=== PATIENT | female | born 1970 | race African-American/Black ===

== ENCOUNTER 2018-01-17 00:51 | Inpatient (IN) | payer MEDICARE, MEDICAID ==
[~2018-01-17] VITALS: Ht 157.5 cm; Wt 140.6 kg
[2018-01-17] VITALS (11 sets, daily range): BP systolic 126–173; BP diastolic 67–104
[2018-01-17] MEDS ORDERED: ATENOLOL25 MG ORAL (01:29)
[2018-01-17] MEDS ORDERED: CATAPRES0.3 MG ORAL (01:29)
[2018-01-17 04:22] LABS: BASOPHILS % (AUTO) 1.3 % (0.0-2.0); HEMATOCRIT 25.6 % (37.0-47.0); LYMPHOCYTES % (AUTO) 17.2 % (20.0-45.0); MEAN CORPUSCULAR VOLUME 93 FL (80-99); MONOCYTES % (AUTO) 5.2 % (1.0-10.0); NEUTROPHILS % (AUTO) 75.3 % (45.0-75.0); PLATELET COUNT 224 K/UL (150-450); RED BLOOD COUNT 2.74 M/UL (4.20-5.40); RED CELL DISTRIBUTION WIDTH 14.6 % (11.6-14.8); WHITE BLOOD COUNT 9.5 K/UL (4.8-10.8)
--- NOTE | 2018-01-17 04:31 | Emergency Room Report ---
History of Present Illness General Chief Complaint: General Complaint Source: Patient Present Illness HPI Patient is a 47-year-old female who presented after increased generalized weakness. She gradual onset of symptoms. Patient was noted to have prior history of end-stage renal disease as well as hypertension and diabetes. She is on dialysis. The patient had recently had a graft infection. She had surgery to replace dialysis catheter at [facility]. The patient was noted to have the inability to obtain dialysis for her last 2 dialysis. The patient stated that she went to her appointment at the dialysis clinic and was unable to be completely dialyzed due to malfunction of access. Patient denies any fever. She had not been vomiting. She denied shortness of breath. Allergies: Coded Allergies: HEPARIN (Verified Allergy, Unknown, 01/17/18) negative reaction with eyes Patient History Past Medical History: HTN, renal disease, dialysis Past Surgical History: other - dialysis access Reviewed Nursing Documentation: PMH: Agreed; PSxH: Agreed Nursing Documentation-PMH Hx Hypertension: Yes Hx Dialysis: Yes - ESRD,M-W-F Review of Systems All Other Systems: negative except mentioned in HPI Physical Exam Vital Signs Date Time Temp Pulse Resp B/P (MAP) Pulse Ox O2 Delivery O2 Flow Rate FiO2 01/17/18 01:20 97.7 63 16 173/104 100 Room Air 97.7 Sp02 EP Interpretation: reviewed, normal General Appearance: normal inspection, well appearing, no apparent distress, alert, obese, Chronically Ill Head: atraumatic ENT: normal ENT inspection, hearing grossly normal, normal voice Neck: normal inspection, full range of motion, supple, no bony tend Respiratory: normal inspection, lungs clear, normal breath sounds, no respiratory distress, no retraction, no wheezing Cardiovascular #1: edema Gastrointestinal: normal inspection, normal bowel sounds, non tender, soft, no guarding, no hernia Genitourinary: no CVA tenderness Musculoskeletal: normal inspection, back normal, normal range of motion Neurologic: normal inspection, alert, oriented x3, responsive, county program technician III-XII nml as tested, speech normal Psychiatric: normal inspection, judgement/insight normal, mood/affect normal Skin: normal inspection, normal color, no rash Medical Decision Making Diagnostic Impression: Primary Impression: Missed dialysis Additional Impressions: Clotted dialysis access ESRD (end stage renal disease) ER Course Patient presented for generalized weakness. Differential diagnosis included was not limited to anemia, urinary tract infection, electrolyte abnormality, hypothyroidism, myocardial infarction, myasthenia gravis, dehydration, among others. Because of complexity of patient's case laboratory testing and imaging studies were ordered. Laboratory studies showed marked elevation of BUN/creatinine consistent with a missed dialysis. She was noted to have a normal potassium. The patient will be admitted for further evaluation and treatment and likely dialysis. Patient was discussed with Dr. David Faulkner for inpatient management Labs Test 01/17/18 04:10 White Blood Count 9.5 K/UL (4.8-10.8) Red Blood Count 2.74 M/UL (4.20-5.40) Hemoglobin 8.0 G/DL (12.0-16.0) Hematocrit 25.6 % (37.0-47.0) Mean Corpuscular Volume 93 FL (80-99) Mean Corpuscular Hemoglobin 29.0 PG (27.0-31.0) Mean Corpuscular Hemoglobin Concent 31.1 G/DL (32.0-36.0) Red Cell Distribution Width 14.6 % (11.6-14.8) Platelet Count 224 K/UL (150-450) Mean Platelet Volume 6.6 FL (6.5-10.1) Neutrophils (%) (Auto) 75.3 % (45.0-75.0) Lymphocytes (%) (Auto) 17.2 % (20.0-45.0) Monocytes (%) (Auto) 5.2 % (1.0-10.0) Eosinophils (%) (Auto) 1.0 % (0.0-3.0) Basophils (%) (Auto) 1.3 % (0.0-2.0) Prothrombin Time 10.5 SEC (9.30-11.50) Prothromb Time International Ratio 1.0 (0.9-1.1) Activated Partial Thromboplast Time 21 SEC (23-33) Sodium Level 140 MMOL/L (136-145) Potassium Level 3.9 MMOL/L (3.5-5.1) Chloride Level 103 MMOL/L (98-107) Carbon Dioxide Level 20 MMOL/L (21-32) Anion Gap 17 mmol/L (5-15) Blood Urea Nitrogen 96 mg/dL (7-18) Creatinine 15.3 MG/DL (0.55-1.30) Estimat Glomerular Filtration Rate 3.0 mL/min (>60) Glucose Level 122 MG/DL (74-106) Calcium Level 8.8 MG/DL (8.5-10.1) Total Bilirubin 0.5 MG/DL (0.2-1.0) Aspartate Amino Transf (AST/SGOT) 17 U/L (15-37) Alanine Aminotransferase (ALT/SGPT) 16 U/L (12-78) Alkaline Phosphatase 51 U/L (46-116) Total Protein 7.9 G/DL (6.4-8.2) Albumin 3.5 G/DL (3.4-5.0) Globulin 4.4 g/dL Albumin/Globulin Ratio 0.8 (1.0-2.7) EKG Diagnostic Results Rate: normal Rhythm: NSR ST Segments: no acute changes Last Vital Signs Date Time Temp Pulse Resp B/P (MAP) Pulse Ox O2 Delivery O2 Flow Rate FiO2 01/17/18 01:30 97.7 16 173/104 100 Room Air 97.7 01/17/18 01:20 63 Status: unchanged Disposition: ADMITTED INPATIENT Condition: Serious Patient Instructions: Nontoxic Ingestion Rustam Moody MD Jan 17, 2018 04:31
[2018-01-17 04:35] LABS: ANION GAP 17 mmol/L (5-15); BLOOD UREA NITROGEN 96 mg/dL (7-18); CALCIUM 8.8 MG/DL (8.5-10.1); CARBON DIOXIDE 20 MMOL/L (21-32); CHLORIDE 103 MMOL/L (98-107); CREATININE 15.3 MG/DL (0.55-1.30); POTASSIUM 3.9 MMOL/L (3.5-5.1); SODIUM 140 MMOL/L (136-145)
[2018-01-17 04:40] LABS: ALANINE AMINOTRANSFERASE 16 U/L (12-78); ALBUMIN 3.5 G/DL (3.4-5.0); ALBUMIN/GLOBULIN RATIO 0.8 (1.0-2.7); ALKALINE PHOSPHATASE 51 U/L (46-116); ASPARTATE AMINO TRANSFERASE 17 U/L (15-37); BILIRUBIN,TOTAL 0.5 MG/DL (0.2-1.0)
[2018-01-17] MEDS ORDERED: Albuterol/Ipratropium 3ml neb HHN PRN (05:00)
[2018-01-17] MEDS ORDERED: Miralax 17gm pkt ORAL PRN (05:00)
--- NOTE | 2018-01-17 10:41 | Cardiac Electrophysiology PN ---
Subjective Subjective [id number] Objective Last 24 Hour Vital Signs Date Time Temp Pulse Resp B/P (MAP) Pulse Ox O2 Delivery O2 Flow Rate FiO2 01/17/18 08:00 97.7 67 18 148/87 (107) 100 97.7 01/17/18 06:30 97.6 71 17 171/101 100 Room Air 97.6 01/17/18 05:30 97.6 71 17 171/101 100 Room Air 97.6 01/17/18 01:30 97.7 16 173/104 100 Room Air 97.7 01/17/18 01:20 97.7 63 16 173/104 100 Room Air 97.7 Intake and Output 01/16/18 01/17/18 19:00 07:00 Intake Total 0 ml Balance 0 ml Intake Oral 0 ml Laboratory Tests Test 01/17/18 03:55 01/17/18 04:10 Lactic Acid Level 0.90 mmol/L (0.4-2.0) Troponin I 0.000 ng/mL (0.000-0.056) White Blood Count 9.5 K/UL (4.8-10.8) Red Blood Count 2.74 M/UL (4.20-5.40) L Hemoglobin 8.0 G/DL (12.0-16.0) L Hematocrit 25.6 % (37.0-47.0) L Mean Corpuscular Volume 93 FL (80-99) Mean Corpuscular Hemoglobin 29.0 PG (27.0-31.0) Mean Corpuscular Hemoglobin Concent 31.1 G/DL (32.0-36.0) L Red Cell Distribution Width 14.6 % (11.6-14.8) Platelet Count 224 K/UL (150-450) Mean Platelet Volume 6.6 FL (6.5-10.1) Neutrophils (%) (Auto) 75.3 % (45.0-75.0) H Lymphocytes (%) (Auto) 17.2 % (20.0-45.0) L Monocytes (%) (Auto) 5.2 % (1.0-10.0) Eosinophils (%) (Auto) 1.0 % (0.0-3.0) Basophils (%) (Auto) 1.3 % (0.0-2.0) Prothrombin Time 10.5 SEC (9.30-11.50) Prothromb Time International Ratio 1.0 (0.9-1.1) Activated Partial Thromboplast Time 21 SEC (23-33) L Sodium Level 140 MMOL/L (136-145) Potassium Level 3.9 MMOL/L (3.5-5.1) Chloride Level 103 MMOL/L (98-107) Carbon Dioxide Level 20 MMOL/L (21-32) L Anion Gap 17 mmol/L (5-15) H Blood Urea Nitrogen 96 mg/dL (7-18) H Creatinine 15.3 MG/DL (0.55-1.30) H Estimat Glomerular Filtration Rate 3.0 mL/min (>60) Glucose Level 122 MG/DL (74-106) H Calcium Level 8.8 MG/DL (8.5-10.1) Total Bilirubin 0.5 MG/DL (0.2-1.0) Aspartate Amino Transf (AST/SGOT) 17 U/L (15-37) Alanine Aminotransferase (ALT/SGPT) 16 U/L (12-78) Alkaline Phosphatase 51 U/L (46-116) Total Protein 7.9 G/DL (6.4-8.2) Albumin 3.5 G/DL (3.4-5.0) Globulin 4.4 g/dL Albumin/Globulin Ratio 0.8 (1.0-2.7) Farnk Liang MD Jan 17, 2018 10:41
[2018-01-17] MEDS: Atenolol 25mg tab ORAL SCH ×2 (10:52→11:00)
[2018-01-17] MEDS: Heparin 5000 units/ml inj SUBQ SCH ×3 (10:52→21:48)
--- NOTE | 2018-01-17 12:09 | Diagnostic Imaging Report ---
Indication: Malpositioned tunneled dialysis catheter Technique: One view of the chest Comparison: none Findings: Patient is rotated to the right. There is a left transjugular tunneled dialysis catheter, tip of which projects at the level of the innominate venous confluence. The heart is borderline enlarged. The lungs and pleural spaces are clear. Impression: Malpositioned, likely dislodged, tunneled dialysis catheter. Consider over the guidewire replacement No acute process
--- NOTE | 2018-01-17 12:14 | Consultation ---
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
--- NOTE | 2018-01-17 12:22 | Consultation ---
History of Present Illness General Date patient seen: Jan 17, 2018 Chief Complaint: General Complaint Present Illness HPI 47 year old female with hx of ESRF on HD, HTN, CAD, presented to [facility] because apparently she missed her dialysis a few times. Her BP was high on presentation. she is admitted to telemetry for further evaluation. Allergies: Coded Allergies: No Known Allergies (Unverified , 01/17/18) Medication History Scheduled Atenolol* (Tenormin*), 25 MG ORAL DAILY, (Reported) Clonidine Hcl* (Catapres*), 0.3 MG ORAL Q8HR, (Reported) Patient History Healthcare decision maker Resuscitation status Advanced Directive on File Past Medical/Surgical History Past Medical/Surgical History: (1) Hypertension (2) ESRD (end stage renal disease) Review of Systems Constitutional: Reports: no symptoms Eye: Reports: no symptoms ENT: Reports: no symptoms Respiratory: Reports: no symptoms Cardiovascular: Reports: no symptoms Physical Exam General Appearance: WD/WN, no apparent distress Lines, tubes and drains: peripheral HEENT: normocephalic, atraumatic Neck: non-tender, normal alignment Respiratory/Chest: chest wall non-tender, lungs clear Breasts: no masses Cardiovascular/Chest: normal peripheral pulses Abdomen: normal bowel sounds Genitourinary/Rectal: normal rectal exam Extremities: normal range of motion Last 24 Hour Vital Signs Date Time Temp Pulse Resp B/P (MAP) Pulse Ox O2 Delivery O2 Flow Rate FiO2 01/17/18 11:06 71 138/78 01/17/18 11:00 71 138/78 01/17/18 08:00 97.7 67 18 148/87 (107) 100 97.7 01/17/18 06:30 97.6 71 17 171/101 100 Room Air 97.6 01/17/18 05:30 97.6 71 17 171/101 100 Room Air 97.6 01/17/18 01:30 97.7 16 173/104 100 Room Air 97.7 01/17/18 01:20 97.7 63 16 173/104 100 Room Air 97.7 Intake and Output 01/16/18 01/17/18 19:00 07:00 Intake Total 0 ml Balance 0 ml Intake Oral 0 ml Laboratory Tests Test 01/17/18 03:55 01/17/18 04:10 Lactic Acid Level 0.90 mmol/L (0.4-2.0) Troponin I 0.000 ng/mL (0.000-0.056) White Blood Count 9.5 K/UL (4.8-10.8) Red Blood Count 2.74 M/UL (4.20-5.40) L Hemoglobin 8.0 G/DL (12.0-16.0) L Hematocrit 25.6 % (37.0-47.0) L Mean Corpuscular Volume 93 FL (80-99) Mean Corpuscular Hemoglobin 29.0 PG (27.0-31.0) Mean Corpuscular Hemoglobin Concent 31.1 G/DL (32.0-36.0) L Red Cell Distribution Width 14.6 % (11.6-14.8) Platelet Count 224 K/UL (150-450) Mean Platelet Volume 6.6 FL (6.5-10.1) Neutrophils (%) (Auto) 75.3 % (45.0-75.0) H Lymphocytes (%) (Auto) 17.2 % (20.0-45.0) L Monocytes (%) (Auto) 5.2 % (1.0-10.0) Eosinophils (%) (Auto) 1.0 % (0.0-3.0) Basophils (%) (Auto) 1.3 % (0.0-2.0) Prothrombin Time 10.5 SEC (9.30-11.50) Prothromb Time International Ratio 1.0 (0.9-1.1) Activated Partial Thromboplast Time 21 SEC (23-33) L Sodium Level 140 MMOL/L (136-145) Potassium Level 3.9 MMOL/L (3.5-5.1) Chloride Level 103 MMOL/L (98-107) Carbon Dioxide Level 20 MMOL/L (21-32) L Anion Gap 17 mmol/L (5-15) H Blood Urea Nitrogen 96 mg/dL (7-18) H Creatinine 15.3 MG/DL (0.55-1.30) H Estimat Glomerular Filtration Rate 3.0 mL/min (>60) Glucose Level 122 MG/DL (74-106) H Calcium Level 8.8 MG/DL (8.5-10.1) Total Bilirubin 0.5 MG/DL (0.2-1.0) Aspartate Amino Transf (AST/SGOT) 17 U/L (15-37) Alanine Aminotransferase (ALT/SGPT) 16 U/L (12-78) Alkaline Phosphatase 51 U/L (46-116) Total Protein 7.9 G/DL (6.4-8.2) Albumin 3.5 G/DL (3.4-5.0) Globulin 4.4 g/dL Albumin/Globulin Ratio 0.8 (1.0-2.7) L Height (Feet): 5 Height (Inches): 2.00 Weight (Pounds): 301 Medications Current Medications Medications (Trade) Dose Ordered Sig/Everardo Route PRN Reason Start Time Stop Time Status Last Admin Dose Admin Acetaminophen (Tylenol) 650 mg Q4H PRN ORAL Fever 01/17/18 05:00 02/16/18 04:59 Albuterol/ Ipratropium (Albuterol/ Ipratropium) 3 ml Q4H PRN HHN Shortness of Breath 01/17/18 05:00 01/22/18 04:59 Amlodipine Besylate (Norvasc) 10 mg DAILY ORAL 01/18/18 09:00 02/17/18 08:59 Atenolol (Tenormin) 25 mg DAILY ORAL 01/17/18 09:00 02/16/18 08:59 Dextrose (Dextrose 50%) STAT PRN IV Hypoglycemia 01/17/18 05:00 02/16/18 04:59 Heparin Sodium (Porcine) (Heparin 5000 units/ml) 5,000 units EVERY 12 HOURS SUBQ 01/17/18 09:00 02/16/18 08:59 Ondansetron HCl (Zofran) 4 mg Q6H PRN IVP Nausea & Vomiting 01/17/18 05:00 02/16/18 04:59 Polyethylene Glycol (Miralax) 17 gm DAILYPRN PRN ORAL Constipation 01/17/18 05:00 02/16/18 04:59 Temazepam (Restoril) 15 mg HSPRN PRN ORAL Insomnia 01/17/18 05:00 01/24/18 04:59 Assessment/Plan Problem List: (1) Pulmonary edema ICD Codes: J81.1 - Chronic pulmonary edema SNOMED: 10465226 (2) Missed dialysis SNOMED: 419364480 (3) ESRD (end stage renal disease) ICD Codes: N18.6 - End stage renal disease SNOMED: 05058067 (4) Clotted dialysis access ICD Codes: T82.49XA - Other complication of vascular dialysis catheter, initial encounter SNOMED: 75881754 (5) Hypertension ICD Codes: I10 - Essential (primary) hypertension SNOMED: 82195837 Assessment/Plan nephrology evaluation respiratory treatment titrate fio2 HD yamila dvt prophylaxis Porter Mckeon MD Jan 17, 2018 12:22
[2018-01-17] MEDS ORDERED: HydrALAZINE 25mg tab ORAL PRN (12:30)
[2018-01-17] MEDS: Docusate 100mg cap ORAL SCH ×2 (13:00→17:19)
[2018-01-17] MEDS ORDERED: Lidocaine 1% Plain 30 ml INJ SCH (13:15)
--- NOTE | 2018-01-17 15:49 | Pre-Procedure Note/Attestation ---
Pre-Procedure Note/Attestation Complete Prior to Procedure Planned Procedure: left Procedure Narrative: Permacath exchange Indications for Procedure Pre-Operative Diagnosis: Malpositioned permacath Attestation I attest that I discussed the nature of the procedure; its benefits; risks and complications; and alternatives (and the risks and benefits of such alternatives ), prior to the procedure, with the patient (or the patient's legal personal financial representative). I attest that, if there was a reasonable possibility of needing a blood transfusion, the patient (or the patient's legal personal financial representative) was given the [facility] standardized written summary, pursuant to the Josias Wicho Blood Safety Act ([place] Health and Safety Code # 1645, as amended). I attest that I re-evaluated the patient just prior to the surgery and that there has been no change in the patient's H&P, except as documented below: Carlos Eduardo Courtney MD Jan 17, 2018 15:49
--- NOTE | 2018-01-17 16:19 | Brief Operative Note ---
Immediate Post Operative Note Operative Note Pre-op Diagnosis: Malpositioned permacath Procedure: Permacath exchange Post-op Diagnosis: same as pre-op Findings: consistent w/pre-op dx studies Surgeon: Lorena COURTNEY Anesthesia: local Specimen: none Complications: none Condition: stable Fluids: none Estimated Blood Loss: none Drains: none Implant(s) used?: Yes - 28 cm BioFlo catheter Carlos Eduardo Courtney MD Jan 17, 2018 16:19
--- NOTE | 2018-01-17 20:00 | Consultation ---
DATE OF CONSULTATION: 01/17/2018 CARDIOLOGY CONSULTATION CONSULTING PHYSICIAN: Frank Saab M.D. REFERRING PHYSICIAN: David Faulkner D.O. REASON FOR CONSULTATION: Accelerated hypertension. HISTORY OF PRESENT ILLNESS: The patient is a 47-year-old lady with history of hypertension, diabetes, morbid obesity, end-stage renal disease, on hemodialysis, who was brought to the emergency room as the dialysis access was not working. The patient's blood pressure in the ER was 172/104. The patient was admitted and Cardiology consultation was obtained for further evaluation and management. REVIEW OF SYSTEMS: Negative other than what was mentioned in the history of present illness. PAST MEDICAL HISTORY: As mentioned above. FAMILY HISTORY: Noncontributory. SOCIAL HISTORY: She lives at home. Does not smoke or drink alcohol. PHYSICAL EXAMINATION: VITAL SIGNS: Blood pressure is 148/87 and was as high as 171/101 just earlier today, pulse 67, respirations 18, and temperature 97.7. HEAD AND NECK: Showed no JVD. LUNGS: Clear. CHEST: The patient has dialysis access in the chest, left subclavian. CARDIOVASCULAR: Regular. S1 and S2 with no gallop or murmur. ABDOMEN: Morbidly obese. EXTREMITIES: 1+ pitting edema. LABORATORY AND DIAGNOSTIC DATA: Labs show white count 9.5, hemoglobin 8, hematocrit 25, platelet count of 224,000. Sodium 140, potassium 3.9, BUN of 96, creatinine , and glucose of 122. Troponin is negative. ASSESSMENT AND PLAN: 1. Accelerated hypertension. The patient is on Norvasc 10 mg daily and atenolol 25 mg daily. Her EKG showed sinus bradycardia and has also first-degree AV block. I would add hydralazine 25 mg b.i.d. to her medical regimen and get an echocardiogram. 2. First-degree AV block. 3. Clotted dialysis access. 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 Thank you very much, Dr. Faulkner, for allowing me to participate in the care of this patient. Please do not hesitate to contact me for any questions regarding my evaluation. Frank Saab M.D. DR: Ambrose JOB#: [id number] CC:
--- NOTE | 2018-01-17 21:45 | History and Physical Report ---
DATE OF ADMISSION: 01/17/2018 TIME: 1 p.m. CONSULTANTS: 1. Porter Mckeon M.D. 2. Frank Saab M.D. 3. Thompson Gresham M.D. CHIEF COMPLAINT: Weakness, missed dialysis, possible history of clotted cath. BRIEF HISTORY: This is a 47-year-old female, who lives at home, presented to [facility] last night with history of increased weakness. She had missed dialysis, was found to have anemia of 8. The patient was admitted to telemetry for further care. Currently, calm in bed. No complaints. No chest pain. No shortness of breath. No nausea, vomiting, or diarrhea. The patient is eating. PAST MEDICAL HISTORY: Includes hypertension, weakness, ESRD, anemia, and morbid obesity. PAST SURGICAL HISTORY: Shunt. MEDICATIONS: Include Procrit, amlodipine, pantoprazole, docusate sodium, Renvela, hydralazine, amlodipine, atenolol, albuterol, and Zofran. ALLERGIES: Heparin. SOCIAL HISTORY: Positive smoking. No alcohol. No intravenous drug abuse. FAMILY HISTORY: Noncontributory. PHYSICAL EXAMINATION: GENERAL: Calm in bed, oriented x3, in no acute distress. VITAL SIGNS: Temperature is 97 degrees, pulse 67, respirations 18, and blood pressure 140/87. CARDIOVASCULAR: No murmur. LUNGS: Poor air exchange. ABDOMEN: Bowel sounds distant. EXTREMITIES: No cyanosis or edema. NEUROLOGIC: The patient moves all extremities. Slightly weak. LABORATORY DATA: Labs, at this time, show hemoglobin 8, otherwise, CBC is normal. BMP shows CO2 20, BUN and creatinine are 96 and 15, and glucose 122. INR is 1.0. PTT 21. ASSESSMENT: 1. Weakness. 2. Hypertension. 3. End-stage renal disease. 4. Cardiac catheterization history. 5. Anemia. 6. Morbidly obese. PLAN: 1. Dialysis p.r.n. 2. Blood pressure and pain control. 3. Dietary followup. 4. OT, PT, and dietary evaluation. 5. We will continue to follow this patient. David Faulkner D.O. DR: STAN JOB#: [id number] CC:
[2018-01-18] VITALS (9 sets, daily range): BP systolic 123–196; BP diastolic 66–93
[2018-01-18] MEDS ORDERED: Lidocaine 1% Plain 30 ml INJ SCH (08:30)
[2018-01-18] MEDS: Atenolol 25mg tab ORAL SCH (09:00)
[2018-01-18] MEDS: Docusate 100mg cap ORAL SCH ×3 (09:00→18:00)
[2018-01-18] MEDS: Heparin 5000 units/ml inj SUBQ SCH (09:00)
--- NOTE | 2018-01-18 09:44 | Nephrology Progress Note ---
Assessment/Plan Problem List: (1) ESRD (end stage renal disease) (2) Hypertension (3) Clotted dialysis access Assessment ESRD DM HTN now controlled Morbid obesity clotted left chest cath Plan Plan: Change cath by radiologist, done yesterday- didnt work again- due for change again HD after catheter functional BP and BS check discussed with RN today's labs pending Subjective ROS Limited/Unobtainable: No Constitutional: Reports: weakness Objective Objective Last 24 Hour Vital Signs Date Time Temp Pulse Resp B/P (MAP) Pulse Ox O2 Delivery O2 Flow Rate FiO2 01/18/18 09:00 66 123/66 01/18/18 09:00 66 123/66 01/18/18 08:25 Room Air 01/18/18 08:00 98.2 66 18 123/66 (85) 100 98.2 01/18/18 04:30 Room Air 01/18/18 04:19 97.5 73 16 139/83 (101) 98 97.5 01/18/18 03:48 73 01/18/18 00:00 97.7 72 17 144/70 (94) 96 97.7 75 01/17/18 23:35 76 01/17/18 23:18 Room Air 01/17/18 19:47 76 01/17/18 19:46 97.9 75 18 126/67 (86) 99 97.9 75 01/17/18 19:40 74 18 Room Air 21 01/17/18 16:00 97.7 74 18 134/71 (92) 100 97.7 01/17/18 16:00 75 01/17/18 14:30 65 18 144/75 (98) 100 01/17/18 14:25 66 18 138/80 (99) 100 01/17/18 14:20 68 18 150/83 (105) 100 01/17/18 14:15 65 16 158/89 (112) 100 01/17/18 13:27 Room Air 01/17/18 13:27 64 18 01/17/18 12:00 98.2 72 18 138/78 (98) 98 98.2 01/17/18 12:00 77 01/17/18 11:06 71 138/78 01/17/18 11:00 71 138/78 01/17/18 10:22 65 18 Room Air 21 Intake and Output 01/17/18 01/18/18 19:00 07:00 Intake Total 360 ml Balance 360 ml Intake Oral 360 ml Laboratory Tests 01/17/18 13:40: Urine HCG, Qualitative Negative Height (Feet): 5 Height (Inches): 2.00 Weight (Pounds): 301 General Appearance: no apparent distress Cardiovascular: normal rate Respiratory/Chest: decreased breath sounds Abdomen: other - obese Thompson Gresham MD Jan 18, 2018 09:44
[2018-01-18 10:06] LABS: HEMATOCRIT 24.7 % (37.0-47.0); HEMOGLOBIN 7.6 G/DL (12.0-16.0); MEAN CORPUSCULAR VOLUME 94 FL (80-99); PLATELET COUNT 232 K/UL (150-450); RED BLOOD COUNT 2.64 M/UL (4.20-5.40); RED CELL DISTRIBUTION WIDTH 14.9 % (11.6-14.8); WHITE BLOOD COUNT 9.4 K/UL (4.8-10.8)
[2018-01-18 10:40] LABS: ALANINE AMINOTRANSFERASE 25 U/L (12-78); ALBUMIN 3.5 G/DL (3.4-5.0); ALBUMIN/GLOBULIN RATIO 0.9 (1.0-2.7); ALKALINE PHOSPHATASE 51 U/L (46-116); ANION GAP 15 mmol/L (5-15); ASPARTATE AMINO TRANSFERASE 24 U/L (15-37); BILIRUBIN,TOTAL 0.5 MG/DL (0.2-1.0); BLOOD UREA NITROGEN 100 mg/dL (7-18); CALCIUM 8.5 MG/DL (8.5-10.1); CARBON DIOXIDE 22 MMOL/L (21-32); CHLORIDE 104 MMOL/L (98-107); CHOLESTEROL 132 MG/DL (< 200); CREATININE 14.9 MG/DL (0.55-1.30); FERRITIN 491 NG/ML (8-388); HDL CHOLESTEROL 42 MG/DL (40-60); LACTATE DEHYDROGENASE 233 U/L (81-234); POTASSIUM 4.2 MMOL/L (3.5-5.1); SODIUM 141 MMOL/L (136-145); TRIGLYCERIDES 171 MG/DL (30-150)
--- NOTE | 2018-01-18 11:03 | Diagnostic Imaging Report ---
Indications: Needs long-term dialysis access Technique: Patient given IV Ancef. Total sterile technique, including sterile probe cover and sterile gel, sterile gloves, hand hygiene, hat, mask,, sterile gown, large sterile drape, and preparation with 2% chlorhexidine utilized. Local anesthesia with 1% lidocaine. A hydrophilic guidewires were inserted through the pre-existing malpositioned catheter. The catheter was removed, and a new 28 cm BioFlo catheter was inserted over 2 guidewires. Digital radiograph documents satisfactory catheter tip position in the superior vena cava, no kinking at the insertion site. Both catheter ports aspirated and flushed. Catheter was fixed to the skin. Patient tolerated procedure well without immediate complication. Total fluoroscopy time 2.5 minutes. Total dose area product 240 dGycm2 Total number of images-2 Comparison: Preprocedure chest radiograph of earlier the same day Findings: Completion radiograph documents satisfactory position and course of the catheter, catheter tip at the superior vena cava. Impression: Successful replacement of malpositioned left jugular tunneled dialysis catheter, as described above
[2018-01-18 11:48] LABS: % IRON SATURATION 31 % (15-50); IRON 69 ug/dL (50-175); TOTAL IRON BINDING CAPACITY 225 ug/dL (250-450)
--- NOTE | 2018-01-18 11:55 | Cardiac Electrophysiology PN ---
Assessment/Plan Assessment/Plan 1. Accelerated hypertension. On Norvasc 10 mg daily and atenolol 25 mg daily and HD. 2. First-degree AV block. No Syncope 3. Clotted dialysis access. Needs catheter change again. FU Dr Gresham Subjective Subjective No CP or SOB. Changed dialysis cath by radiologist yesterday- didnt work again - due for change again HD after catheter functional Objective Last 24 Hour Vital Signs Date Time Temp Pulse Resp B/P (MAP) Pulse Ox O2 Delivery O2 Flow Rate FiO2 01/18/18 09:00 Room Air 01/18/18 09:00 66 123/66 01/18/18 09:00 66 123/66 01/18/18 08:25 Room Air 01/18/18 08:00 98.2 66 18 123/66 (85) 100 98.2 01/18/18 08:00 63 01/18/18 04:30 Room Air 01/18/18 04:19 97.5 73 16 139/83 (101) 98 97.5 01/18/18 03:48 73 01/18/18 00:00 97.7 72 17 144/70 (94) 96 97.7 75 01/17/18 23:35 76 01/17/18 23:18 Room Air 01/17/18 19:47 76 01/17/18 19:46 97.9 75 18 126/67 (86) 99 97.9 75 01/17/18 19:40 74 18 Room Air 21 01/17/18 16:00 97.7 74 18 134/71 (92) 100 97.7 01/17/18 16:00 75 01/17/18 14:30 65 18 144/75 (98) 100 01/17/18 14:25 66 18 138/80 (99) 100 01/17/18 14:20 68 18 150/83 (105) 100 01/17/18 14:15 65 16 158/89 (112) 100 01/17/18 13:27 Room Air 01/17/18 13:27 64 18 01/17/18 12:00 98.2 72 18 138/78 (98) 98 98.2 01/17/18 12:00 77 Intake and Output 01/17/18 01/18/18 19:00 07:00 Intake Total 360 ml Balance 360 ml Intake Oral 360 ml Laboratory Tests Test 01/17/18 13:40 01/18/18 09:50 Urine HCG, Qualitative Negative (NEGATIVE) White Blood Count 9.4 K/UL (4.8-10.8) Red Blood Count 2.64 M/UL (4.20-5.40) L Hemoglobin 7.6 G/DL (12.0-16.0) L Hematocrit 24.7 % (37.0-47.0) L Mean Corpuscular Volume 94 FL (80-99) Mean Corpuscular Hemoglobin 28.8 PG (27.0-31.0) Mean Corpuscular Hemoglobin Concent 30.8 G/DL (32.0-36.0) L Red Cell Distribution Width 14.9 % (11.6-14.8) H Platelet Count 232 K/UL (150-450) Mean Platelet Volume 6.2 FL (6.5-10.1) L Neutrophils (%) (Auto) % (45.0-75.0) Lymphocytes (%) (Auto) % (20.0-45.0) Monocytes (%) (Auto) % (1.0-10.0) Eosinophils (%) (Auto) % (0.0-3.0) Basophils (%) (Auto) % (0.0-2.0) Differential Total Cells Counted 100 Neutrophils % (Manual) 70 % (45-75) Lymphocytes % (Manual) 22 % (20-45) Monocytes % (Manual) 6 % (1-10) Eosinophils % (Manual) 1 % (0-3) Basophils % (Manual) 1 % (0-2) Band Neutrophils 0 % (0-8) Platelet Estimate Adequate Platelet Morphology Normal Hypochromasia 2+ Anisocytosis 1+ Erythrocyte Sedimentation Rate 99 MM/HR (0-20) H Reticulocyte Count 1.5 % (0.0-2.0) Prothrombin Time 10.5 SEC (9.30-11.50) Prothromb Time International Ratio 1.0 (0.9-1.1) Activated Partial Thromboplast Time 22 SEC (23-33) L Sodium Level 141 MMOL/L (136-145) Potassium Level 4.2 MMOL/L (3.5-5.1) Chloride Level 104 MMOL/L (98-107) Carbon Dioxide Level 22 MMOL/L (21-32) Anion Gap 15 mmol/L (5-15) Blood Urea Nitrogen 100 mg/dL (7-18) H Creatinine 14.9 MG/DL (0.55-1.30) H Estimat Glomerular Filtration Rate 3.2 mL/min (>60) Glucose Level 113 MG/DL (74-106) H Hemoglobin A1c Pending Uric Acid Pending Calcium Level 8.5 MG/DL (8.5-10.1) Phosphorus Level Pending Magnesium Level Pending Iron Level Pending Unsaturated Iron Binding Pending Ferritin 491 NG/ML (8-388) H Total Bilirubin 0.5 MG/DL (0.2-1.0) Gamma Glutamyl Transpeptidase Pending Aspartate Amino Transf (AST/SGOT) 24 U/L (15-37) Alanine Aminotransferase (ALT/SGPT) 25 U/L (12-78) Alkaline Phosphatase 51 U/L (46-116) Lactate Dehydrogenase 233 U/L (81-234) Troponin I 0.000 ng/mL (0.000-0.056) Pro-B-Type Natriuretic Peptide Pending Total Protein 7.6 G/DL (6.4-8.2) Albumin 3.5 G/DL (3.4-5.0) Globulin 4.1 g/dL Albumin/Globulin Ratio 0.9 (1.0-2.7) L Triglycerides Level 171 MG/DL (30-150) H Cholesterol Level 132 MG/DL (< 200) LDL Cholesterol 62 mg/dL (<100) HDL Cholesterol 42 MG/DL (40-60) Cholesterol/HDL Ratio 3.1 (3.3-4.4) L Carcinoembryonic Antigen Pending Vitamin B12 Level 796 PG/ML (193-986) Folate 5.3 NG/ML (8.6-58.9) L Thyroid Stimulating Hormone (TSH) 1.682 uiU/mL (0.358-3.740) Microbiology Date/Time Source Procedure Growth Status 01/17/18 04:10 Blood Blood Culture - Preliminary NO GROWTH AFTER 24 HOURS Resulted 01/17/18 03:55 Blood Blood Culture - Preliminary NO GROWTH AFTER 24 HOURS Resulted Objective HEAD AND NECK: Showed no JVD. LUNGS: Clear. CHEST: The patient has dialysis access in the chest, left subclavian. CARDIOVASCULAR: Regular. S1 and S2 with no gallop or murmur. ABDOMEN: Morbidly obese. EXTREMITIES: 1+ pitting edema. Frank Saab MD Jan 18, 2018 11:55
[2018-01-18 13:20] LABS: PHOSPHORUS 7.9 MG/DL (2.5-4.9)
[2018-01-18] MEDS ORDERED: NS 110 ML ONE (13:20)
[2018-01-18] MEDS ORDERED: Lidocaine 1% Plain 30 ml INJ ONE (13:30)
--- NOTE | 2018-01-18 14:05 | General Progress Note ---
Assessment/Plan Problem List: (1) Weak ICD Codes: R53.1 - Weakness SNOMED: 27918088 (2) Anemia ICD Codes: D64.9 - Anemia, unspecified SNOMED: 822907472 (3) ESRD (end stage renal disease) ICD Codes: N18.6 - End stage renal disease SNOMED: 15251996 (4) Hypertension ICD Codes: I10 - Essential (primary) hypertension SNOMED: 00402511 (5) Missed dialysis SNOMED: 527847226 (6) Clotted dialysis access ICD Codes: T82.49XA - Other complication of vascular dialysis catheter, initial encounter SNOMED: 69599296 Status: unchanged Assessment/Plan ot pt diet dialysis cbc bmp am Subjective Constitutional: Reports: weakness Allergies: Coded Allergies: HEPARIN (Verified Allergy, Unknown, 01/17/18) negative reaction with eyes All Systems: reviewed and negative except above Subjective calm awaiting new port Objective Last 24 Hour Vital Signs Date Time Temp Pulse Resp B/P (MAP) Pulse Ox O2 Delivery O2 Flow Rate FiO2 01/18/18 12:00 79 01/18/18 12:00 98.2 64 18 128/70 (89) 98 98.2 01/18/18 09:00 Room Air 01/18/18 09:00 66 123/66 01/18/18 09:00 66 123/66 01/18/18 08:25 Room Air 01/18/18 08:00 98.2 66 18 123/66 (85) 100 98.2 01/18/18 08:00 63 01/18/18 04:30 Room Air 01/18/18 04:19 97.5 73 16 139/83 (101) 98 97.5 01/18/18 03:48 73 01/18/18 00:00 97.7 72 17 144/70 (94) 96 97.7 75 01/17/18 23:35 76 01/17/18 23:18 Room Air 01/17/18 19:47 76 01/17/18 19:46 97.9 75 18 126/67 (86) 99 97.9 75 01/17/18 19:40 74 18 Room Air 21 01/17/18 16:00 97.7 74 18 134/71 (92) 100 97.7 01/17/18 16:00 75 01/17/18 14:30 65 18 144/75 (98) 100 01/17/18 14:25 66 18 138/80 (99) 100 01/17/18 14:20 68 18 150/83 (105) 100 01/17/18 14:15 65 16 158/89 (112) 100 Intake and Output 01/17/18 01/18/18 19:00 07:00 Intake Total 360 ml Balance 360 ml Intake Oral 360 ml Laboratory Tests 01/18/18 09:50: White Blood Count 9.4, Red Blood Count 2.64L, Hemoglobin 7.6L, Hematocrit 24.7L , Mean Corpuscular Volume 94, Mean Corpuscular Hemoglobin 28.8, Mean Corpuscular Hemoglobin Concent 30.8L, Red Cell Distribution Width 14.9H, Platelet Count 232, Mean Platelet Volume 6.2L, Neutrophils (%) (Auto) , Lymphocytes (%) (Auto) , Monocytes (%) (Auto) , Eosinophils (%) (Auto) , Basophils (%) (Auto) , Differential Total Cells Counted 100, Neutrophils % ( Manual) 70, Lymphocytes % (Manual) 22, Monocytes % (Manual) 6, Eosinophils % ( Manual) 1, Basophils % (Manual) 1, Band Neutrophils 0, Platelet Estimate Adequate, Platelet Morphology Normal, Hypochromasia 2+, Anisocytosis 1+, Erythrocyte Sedimentation Rate 99H, Reticulocyte Count 1.5, Prothrombin Time 10.5, Prothromb Time International Ratio 1.0, Activated Partial Thromboplast Time 22L, Sodium Level 141, Potassium Level 4.2, Chloride Level 104, Carbon Dioxide Level 22, Anion Gap 15, Blood Urea Nitrogen 100H, Creatinine 14.9H, Estimat Glomerular Filtration Rate 3.2, Glucose Level 113H, Hemoglobin A1c 6.0, Uric Acid 9.7H, Calcium Level 8.5, Phosphorus Level 7.9H, Magnesium Level 2.9H, Iron Level 69, Total Iron Binding Capacity 225L, Percent Iron Saturation 31, Unsaturated Iron Binding 156, Ferritin 491H, Total Bilirubin 0.5, Gamma Glutamyl Transpeptidase 17, Aspartate Amino Transf (AST/SGOT) 24, Alanine Aminotransferase (ALT/SGPT) 25, Alkaline Phosphatase 51, Lactate Dehydrogenase 233, Troponin I 0.000, Pro-B-Type Natriuretic Peptide 916H, Total Protein 7.6, Albumin 3.5, Globulin 4.1, Albumin/Globulin Ratio 0.9L, Triglycerides Level 171H , Cholesterol Level 132, LDL Cholesterol 62, HDL Cholesterol 42, Cholesterol/ HDL Ratio 3.1L, Carcinoembryonic Antigen [Pending], Vitamin B12 Level 796, Folate 5.3L, Thyroid Stimulating Hormone (TSH) 1.682 Height (Feet): 5 Height (Inches): 2.00 Weight (Pounds): 301 General Appearance: lethargic EENT: normal ENT inspection Neck: normal alignment Cardiovascular: normal peripheral pulses, normal rate, regular rhythm Respiratory/Chest: chest wall non-tender, lungs clear, normal breath sounds Extremities: normal inspection Edema: no edema noted Arm (L), no edema noted Arm (R), no edema noted Leg (L), no edema noted Leg (R), no edema noted Pedal (L), no edema noted Pedal (R), no edema noted Generalized Neurologic: motor weakness Skin: normal pigmentation, warm/dry David Faulkner DO Jan 18, 2018 14:05
--- NOTE | 2018-01-18 14:12 | Pre-Procedure Note/Attestation ---
Pre-Procedure Note/Attestation Complete Prior to Procedure Planned Procedure: not applicable Procedure Narrative: Permacath exchange Indications for Procedure Pre-Operative Diagnosis: Malpositioned permacath Attestation I attest that I discussed the nature of the procedure; its benefits; risks and complications; and alternatives (and the risks and benefits of such alternatives ), prior to the procedure, with the patient (or the patient's legal counter sales representative). I attest that, if there was a reasonable possibility of needing a blood transfusion, the patient (or the patient's legal counter sales representative) was given the [facility] standardized written summary, pursuant to the Josias Wicho Blood Safety Act ([place] Health and Safety Code # 1645, as amended). I attest that I re-evaluated the patient just prior to the surgery and that there has been no change in the patient's H&P, except as documented below: Carlos Eduardo Courtney MD Jan 18, 2018 14:12
--- NOTE | 2018-01-18 14:18 | Pulmonology Progress Note ---
Assessment/Plan Problems: (1) Pulmonary edema (2) Missed dialysis (3) ESRD (end stage renal disease) (4) Clotted dialysis access (5) Hypertension Assessment/Plan c/o carmps in legs BP still elevated HD as per renal f/u labs symptomatic treatment check electrolytes Subjective ROS Limited/Unobtainable: No Constitutional: Reports: no symptoms HEENT: Repors: no symptoms Respiratory: Reports: no symptoms Allergies: Coded Allergies: HEPARIN (Verified Allergy, Unknown, 01/17/18) negative reaction with eyes Objective Last 24 Hour Vital Signs Date Time Temp Pulse Resp B/P (MAP) Pulse Ox O2 Delivery O2 Flow Rate FiO2 01/18/18 12:00 79 01/18/18 12:00 98.2 64 18 128/70 (89) 98 98.2 01/18/18 09:00 Room Air 01/18/18 09:00 66 123/66 01/18/18 09:00 66 123/66 01/18/18 08:25 Room Air 01/18/18 08:00 98.2 66 18 123/66 (85) 100 98.2 01/18/18 08:00 63 01/18/18 04:30 Room Air 01/18/18 04:19 97.5 73 16 139/83 (101) 98 97.5 01/18/18 03:48 73 01/18/18 00:00 97.7 72 17 144/70 (94) 96 97.7 75 01/17/18 23:35 76 01/17/18 23:18 Room Air 01/17/18 19:47 76 01/17/18 19:46 97.9 75 18 126/67 (86) 99 97.9 75 01/17/18 19:40 74 18 Room Air 21 01/17/18 16:00 97.7 74 18 134/71 (92) 100 97.7 01/17/18 16:00 75 01/17/18 14:30 65 18 144/75 (98) 100 01/17/18 14:25 66 18 138/80 (99) 100 01/17/18 14:20 68 18 150/83 (105) 100 Intake and Output 01/17/18 01/18/18 19:00 07:00 Intake Total 360 ml Balance 360 ml Intake Oral 360 ml General Appearance: WD/WN HEENT: normocephalic, atraumatic Respiratory/Chest: chest wall non-tender, lungs clear Breasts: no masses Cardiovascular: normal peripheral pulses Abdomen: normal bowel sounds, soft, non tender Genitourinary: normal external genitalia Extremities: no clubbing Skin: no ulcers Neurologic/Psychiatric: pearl glue drier II-XII grossly normal Microbiology Date/Time Source Procedure Growth Status 01/17/18 04:10 Blood Blood Culture - Preliminary NO GROWTH AFTER 24 HOURS Resulted 01/17/18 03:55 Blood Blood Culture - Preliminary NO GROWTH AFTER 24 HOURS Resulted Laboratory Tests 01/18/18 09:50: White Blood Count 9.4, Red Blood Count 2.64L, Hemoglobin 7.6L, Hematocrit 24.7L , Mean Corpuscular Volume 94, Mean Corpuscular Hemoglobin 28.8, Mean Corpuscular Hemoglobin Concent 30.8L, Red Cell Distribution Width 14.9H, Platelet Count 232, Mean Platelet Volume 6.2L, Neutrophils (%) (Auto) , Lymphocytes (%) (Auto) , Monocytes (%) (Auto) , Eosinophils (%) (Auto) , Basophils (%) (Auto) , Differential Total Cells Counted 100, Neutrophils % ( Manual) 70, Lymphocytes % (Manual) 22, Monocytes % (Manual) 6, Eosinophils % ( Manual) 1, Basophils % (Manual) 1, Band Neutrophils 0, Other Cell Type , Platelet Estimate Adequate, Platelet Morphology Normal, Hypochromasia 2+, Anisocytosis 1+, Erythrocyte Sedimentation Rate 99H, Reticulocyte Count 1.5, Prothrombin Time 10.5, Prothromb Time International Ratio 1.0, Activated Partial Thromboplast Time 22L, Sodium Level 141, Potassium Level 4.2, Chloride Level 104, Carbon Dioxide Level 22, Anion Gap 15, Blood Urea Nitrogen 100H, Creatinine 14.9H, Estimat Glomerular Filtration Rate 3.2, Glucose Level 113H, Hemoglobin A1c 6.0, Uric Acid 9.7H, Calcium Level 8.5, Phosphorus Level 7.9H, Magnesium Level 2.9H, Iron Level 69, Total Iron Binding Capacity 225L, Percent Iron Saturation 31, Unsaturated Iron Binding 156, Ferritin 491H, Total Bilirubin 0.5, Gamma Glutamyl Transpeptidase 17, Aspartate Amino Transf (AST/ SGOT) 24, Alanine Aminotransferase (ALT/SGPT) 25, Alkaline Phosphatase 51, Lactate Dehydrogenase 233, Troponin I 0.000, Pro-B-Type Natriuretic Peptide 916H , Total Protein 7.6, Albumin 3.5, Globulin 4.1, Albumin/Globulin Ratio 0.9L, Triglycerides Level 171H, Cholesterol Level 132, LDL Cholesterol 62, HDL Cholesterol 42, Cholesterol/HDL Ratio 3.1L, Carcinoembryonic Antigen [Pending], Vitamin B12 Level 796, Folate 5.3L, Thyroid Stimulating Hormone (TSH) 1.682 Current Medications Medications (Trade) Dose Ordered Sig/Everardo Route PRN Reason Start Time Stop Time Status Last Admin Dose Admin Acetaminophen (Tylenol) 650 mg Q4H PRN ORAL Fever 01/17/18 05:00 02/16/18 04:59 Albuterol/ Ipratropium (Albuterol/ Ipratropium) 3 ml Q4H PRN HHN Shortness of Breath 01/17/18 05:00 01/22/18 04:59 Amlodipine Besylate (Norvasc) 10 mg DAILY ORAL 01/18/18 09:00 02/17/18 08:59 Atenolol (Tenormin) 25 mg DAILY ORAL 01/17/18 09:00 02/16/18 08:59 Dextrose (Dextrose 50%) STAT PRN IV Hypoglycemia 01/17/18 05:00 02/16/18 04:59 Docusate Sodium (Colace) 100 mg THREE TIMES A DAY ORAL 01/17/18 13:00 02/16/18 12:59 Epoetin Evaristo (Procrit (for ESRD on dialysis)) 10,000 units SUN-SUN-SUN SUBQ 01/18/18 21:00 02/17/18 20:59 Folic Acid (Folate) 2 mg DAILY ORAL 01/18/18 12:15 02/17/18 12:14 Hydralazine HCl (Apresoline) 25 mg Q4H PRN ORAL bp over 160 syst 01/17/18 12:30 02/16/18 12:29 Ondansetron HCl (Zofran) 4 mg Q6H PRN IVP Nausea & Vomiting 01/17/18 05:00 02/16/18 04:59 Pantoprazole (Protonix) 40 mg DAILY ORAL 01/18/18 09:00 02/17/18 08:59 Polyethylene Glycol (Miralax) 17 gm DAILYPRN PRN ORAL Constipation 01/17/18 05:00 10/13/18 04:59 Sevelamer Carbonate (Renvela) 800 mg THREE TIMES A DAY ORAL 01/17/18 13:00 02/16/18 12:59 Sodium Chloride 1,000 ml @ 0 mls/hr Q0M IV 01/17/18 13:15 02/16/18 13:14 Temazepam (Restoril) 15 mg HSPRN PRN ORAL Insomnia 01/17/18 05:00 01/24/18 04:59 Porter Mckeon MD Jan 18, 2018 14:18
--- NOTE | 2018-01-18 14:28 | Brief Operative Note ---
Immediate Post Operative Note Operative Note Chief Complaint: missed dialysis Pre-op Diagnosis: Malpositioned permacath Procedure: Permacath exchange Post-op Diagnosis: same as pre-op Specimen: none Complications: none Condition: stable Fluids: none Implant(s) used?: Yes - 28 cm Palindrome catheter Carlos Eduardo Courtney MD Jan 18, 2018 14:28
[2018-01-18] MEDS ORDERED: Epogen (for ESRD on dialysis) SUBQ SCH (21:00)
[2018-01-19 04:00] VITALS: BP 136/69
[2018-01-19 08:00] VITALS: BP 151/78
[2018-01-19] MEDS: Atenolol 25mg tab ORAL SCH (09:00)
[2018-01-19] MEDS: Docusate 100mg cap ORAL SCH ×3 (09:00→17:30)
--- NOTE | 2018-01-19 11:33 | Pulmonology Progress Note ---
Assessment/Plan Problems: (1) Pulmonary edema (2) Missed dialysis (3) ESRD (end stage renal disease) (4) Clotted dialysis access (5) Hypertension Assessment/Plan c/o carmps in legs BP still elevated, down to 150 HD as per renal f/u labs symptomatic treatment check electrolytes Subjective ROS Limited/Unobtainable: No Constitutional: Reports: no symptoms HEENT: Repors: no symptoms Respiratory: Reports: no symptoms Allergies: Coded Allergies: HEPARIN (Verified Allergy, Unknown, 01/17/18) negative reaction with eyes Objective Last 24 Hour Vital Signs Date Time Temp Pulse Resp B/P (MAP) Pulse Ox O2 Delivery O2 Flow Rate FiO2 01/19/18 09:47 72 18 Room Air 21 01/19/18 09:00 76 151/78 01/19/18 09:00 76 151/78 01/19/18 08:00 76 01/19/18 08:00 97.0 76 20 151/78 (102) 100 97.0 01/19/18 04:00 98.2 70 20 136/69 (91) 99 98.2 01/19/18 04:00 77 01/19/18 00:03 80 18 Room Air 21 01/19/18 00:00 86 01/18/18 21:00 Room Air 01/18/18 20:00 98.1 75 20 145/81 (102) 97 98.1 01/18/18 20:00 75 01/18/18 17:52 Room Air 21 01/18/18 16:51 Room Air 21 01/18/18 16:00 98.2 72 18 154/92 (112) 95 98.2 01/18/18 16:00 72 01/18/18 14:30 62 14 196/93 (127) 100 01/18/18 14:27 98.2 79 18 01/18/18 14:25 59 14 98 01/18/18 14:20 62 14 100 01/18/18 14:16 62 13 177/82 (113) 99 01/18/18 12:00 79 01/18/18 12:00 98.2 64 18 128/70 (89) 98 98.2 Intake and Output 01/18/18 01/19/18 19:00 07:00 Intake Total 240 ml 120 ml Output Total 3100 ml Balance -2860 ml 120 ml Intake Oral 240 ml 120 ml Output Hemodialysis UF 3100 ml # Voids 1 General Appearance: WD/WN HEENT: normocephalic, atraumatic Respiratory/Chest: chest wall non-tender, lungs clear Breasts: no masses Cardiovascular: normal peripheral pulses Abdomen: normal bowel sounds, soft, non tender Genitourinary: normal external genitalia Extremities: no cyanosis Neurologic/Psychiatric: tree cutter II-XII grossly normal, no motor/sensory deficits Lymphatic: no neck adenopathy Microbiology Date/Time Source Procedure Growth Status 01/17/18 04:10 Blood Blood Culture - Preliminary NO GROWTH AFTER 48 HOURS Resulted 01/17/18 03:55 Blood Blood Culture - Preliminary NO GROWTH AFTER 48 HOURS Resulted 01/17/18 06:25 Nasal Nares MRSA Culture - Final NO METHICILLIN RESISTANT STAPH AUREUS... Complete 01/17/18 06:25 Rectum - Final NO CARBAPENEM-RESISTANT ENTEROBACTERI... Complete 01/17/18 06:25 Rectum VRE Culture - Final NO VANCOMYCIN RESISTANT ENTEROCOCCUS ... Complete Current Medications Medications (Trade) Dose Ordered Sig/Everardo Route PRN Reason Start Time Stop Time Status Last Admin Dose Admin Acetaminophen (Tylenol) 650 mg Q4H PRN ORAL Fever 01/17/18 05:00 02/16/18 04:59 Albuterol/ Ipratropium (Albuterol/ Ipratropium) 3 ml Q4H PRN HHN Shortness of Breath 01/17/18 05:00 01/22/18 04:59 Amlodipine Besylate (Norvasc) 10 mg DAILY ORAL 01/18/18 09:00 02/17/18 08:59 Atenolol (Tenormin) 25 mg DAILY ORAL 01/17/18 09:00 02/16/18 08:59 Dextrose (Dextrose 50%) STAT PRN IV Hypoglycemia 01/17/18 05:00 02/16/18 04:59 Docusate Sodium (Colace) 100 mg THREE TIMES A DAY ORAL 01/17/18 13:00 02/16/18 12:59 Epoetin Evaristo (Procrit (for ESRD on dialysis)) 10,000 units MON-WED-FRI SUBQ 01/18/18 21:00 02/17/18 20:59 01/18/18 20:53 Folic Acid (Folate) 2 mg DAILY ORAL 9/14/18 12:15 02/17/18 12:14 Hydralazine HCl (Apresoline) 25 mg Q4H PRN ORAL bp over 160 syst 01/17/18 12:30 02/16/18 12:29 Ondansetron HCl (Zofran) 4 mg Q6H PRN IVP Nausea & Vomiting 01/17/18 05:00 02/16/18 04:59 01/18/18 23:34 Pantoprazole (Protonix) 40 mg DAILY ORAL 01/18/18 09:00 02/17/18 08:59 Polyethylene Glycol (Miralax) 17 gm DAILYPRN PRN ORAL Constipation 01/17/18 05:00 02/16/18 04:59 Sevelamer Carbonate (Renvela) 1,600 mg THREE TIMES A DAY ORAL 01/19/18 13:00 02/16/18 12:59 Sodium Chloride 1,000 ml @ 0 mls/hr Q0M IV 01/17/18 13:15 02/16/18 13:14 Temazepam (Restoril) 15 mg HSPRN PRN ORAL Insomnia 01/17/18 05:00 01/24/18 04:59 Porter Mckeon MD Jan 19, 2018 11:33
--- NOTE | 2018-01-19 11:47 | Nephrology Progress Note ---
Assessment/Plan Problem List: (1) ESRD (end stage renal disease) (2) Hypertension (3) Clotted dialysis access Assessment ESRD DM HTN now controlled Morbid obesity clotted left chest cath Plan Plan: PO folic acid Increase Renvela dose Change cath by radiologist, done yesterday- dialysed 01/18 BP and BS check discussed with RN today's labs pending next HD 01/21 Patient wished change her dialysis center Hepatitis panel ordered Subjective ROS Limited/Unobtainable: No Constitutional: Reports: other - stronger Objective Objective Last 24 Hour Vital Signs Date Time Temp Pulse Resp B/P (MAP) Pulse Ox O2 Delivery O2 Flow Rate FiO2 01/19/18 09:47 72 18 Room Air 21 01/19/18 09:00 76 151/78 01/19/18 09:00 76 151/78 01/19/18 08:00 76 01/19/18 08:00 97.0 76 20 151/78 (102) 100 97.0 01/19/18 04:00 98.2 70 20 136/69 (91) 99 98.2 01/19/18 04:00 77 01/19/18 00:03 80 18 Room Air 21 01/19/18 00:00 86 01/18/18 21:00 Room Air 01/18/18 20:00 98.1 75 20 145/81 (102) 97 98.1 01/18/18 20:00 75 01/18/18 17:52 Room Air 21 01/18/18 16:51 Room Air 21 01/18/18 16:00 98.2 72 18 154/92 (112) 95 98.2 01/18/18 16:00 72 01/18/18 14:30 62 14 196/93 (127) 100 01/18/18 14:27 98.2 79 18 01/18/18 14:25 59 14 98 01/18/18 14:20 62 14 100 01/18/18 14:16 62 13 177/82 (113) 99 01/18/18 12:00 79 01/18/18 12:00 98.2 64 18 128/70 (89) 98 98.2 Intake and Output 01/18/18 01/19/18 19:00 07:00 Intake Total 240 ml 120 ml Output Total 3100 ml Balance -2860 ml 120 ml Intake Oral 240 ml 120 ml Output Hemodialysis UF 3100 ml # Voids 1 Height (Feet): 5 Height (Inches): 2.00 Weight (Pounds): 301 General Appearance: no apparent distress Cardiovascular: normal rate Respiratory/Chest: decreased breath sounds Abdomen: soft, other - obese Objective no change Thompson Gresham MD Jan 19, 2018 11:46
[2018-01-19 12:00] VITALS: BP 120/77
--- NOTE | 2018-01-19 12:47 | Cardiac Electrophysiology PN ---
Assessment/Plan Assessment/Plan 1. Accelerated hypertension. On Norvasc 10 mg daily and atenolol 25 mg daily and HD. 2. First-degree AV block. No Syncope 3. Clotted dialysis access. Had dialysis. FU Dr Gresham Subjective Subjective No CP or SOB. Had HD yesterday Objective Last 24 Hour Vital Signs Date Time Temp Pulse Resp B/P (MAP) Pulse Ox O2 Delivery O2 Flow Rate FiO2 01/19/18 09:47 72 18 Room Air 21 01/19/18 09:00 76 151/78 01/19/18 09:00 76 151/78 01/19/18 08:00 76 01/19/18 08:00 97.0 76 20 151/78 (102) 100 97.0 01/19/18 04:00 98.2 70 20 136/69 (91) 99 98.2 01/19/18 04:00 77 01/19/18 00:03 80 18 Room Air 21 01/19/18 00:00 86 01/18/18 21:00 Room Air 01/18/18 20:00 98.1 75 20 145/81 (102) 97 98.1 01/18/18 20:00 75 01/18/18 17:52 Room Air 21 01/18/18 16:51 Room Air 21 01/18/18 16:00 98.2 72 18 154/92 (112) 95 98.2 01/18/18 16:00 72 01/18/18 14:30 62 14 196/93 (127) 100 01/18/18 14:27 98.2 79 18 01/18/18 14:25 59 14 98 01/18/18 14:20 62 14 100 01/18/18 14:16 62 13 177/82 (113) 99 Intake and Output 01/18/18 01/19/18 19:00 07:00 Intake Total 240 ml 120 ml Output Total 3100 ml Balance -2860 ml 120 ml Intake Oral 240 ml 120 ml Output Hemodialysis UF 3100 ml # Voids 1 Microbiology Date/Time Source Procedure Growth Status 01/17/18 04:10 Blood Blood Culture - Preliminary NO GROWTH AFTER 48 HOURS Resulted 01/17/18 03:55 Blood Blood Culture - Preliminary NO GROWTH AFTER 48 HOURS Resulted 01/17/18 06:25 Nasal Nares MRSA Culture - Final NO METHICILLIN RESISTANT STAPH AUREUS... Complete 01/17/18 06:25 Rectum - Final NO CARBAPENEM-RESISTANT ENTEROBACTERI... Complete 01/17/18 06:25 Rectum VRE Culture - Final NO VANCOMYCIN RESISTANT ENTEROCOCCUS ... Complete Objective HEAD AND NECK: Showed no JVD. LUNGS: Clear. CHEST: The patient has dialysis access in the chest, left subclavian. CARDIOVASCULAR: Regular. S1 and S2 with no gallop or murmur. ABDOMEN: Morbidly obese. EXTREMITIES: 1+ pitting edema. Frank Saab MD Jan 19, 2018 12:47
[2018-01-19 16:00] VITALS: BP 135/81
--- NOTE | 2018-01-19 16:00 | General Progress Note ---
Assessment/Plan Problem List: (1) Weak ICD Codes: R53.1 - Weakness SNOMED: 40913253 (2) Anemia ICD Codes: D64.9 - Anemia, unspecified SNOMED: 249037565 (3) ESRD (end stage renal disease) ICD Codes: N18.6 - End stage renal disease SNOMED: 94762532 (4) Hypertension ICD Codes: I10 - Essential (primary) hypertension SNOMED: 64092377 (5) Missed dialysis SNOMED: 781749065 (6) Clotted dialysis access ICD Codes: T82.49XA - Other complication of vascular dialysis catheter, initial encounter SNOMED: 31174009 Status: stable, progressing Assessment/Plan ot pt diet dialysis cbc bmp am dc plan w hh Subjective Constitutional: Reports: weakness Allergies: Coded Allergies: HEPARIN (Verified Allergy, Unknown, 01/17/18) negative reaction with eyes All Systems: reviewed and negative except above Subjective calm eating Objective Last 24 Hour Vital Signs Date Time Temp Pulse Resp B/P (MAP) Pulse Ox O2 Delivery O2 Flow Rate FiO2 01/19/18 12:00 97.2 79 20 120/77 (91) 100 97.2 01/19/18 12:00 71 01/19/18 09:47 72 18 Room Air 21 01/19/18 09:00 76 151/78 01/19/18 09:00 76 151/78 01/19/18 09:00 Room Air 01/19/18 08:00 76 01/19/18 08:00 97.0 76 20 151/78 (102) 100 97.0 01/19/18 04:00 98.2 70 20 136/69 (91) 99 98.2 01/19/18 04:00 77 01/19/18 00:03 80 18 Room Air 21 01/19/18 00:00 86 01/18/18 21:00 Room Air 01/18/18 20:00 98.1 75 20 145/81 (102) 97 98.1 01/18/18 20:00 75 01/18/18 17:52 Room Air 21 01/18/18 16:51 Room Air 21 01/18/18 16:00 98.2 72 18 154/92 (112) 95 98.2 01/18/18 16:00 72 Intake and Output 01/18/18 01/19/18 19:00 07:00 Intake Total 240 ml 120 ml Output Total 3100 ml Balance -2860 ml 120 ml Intake Oral 240 ml 120 ml Output Hemodialysis UF 3100 ml # Voids 1 Height (Feet): 5 Height (Inches): 2.00 Weight (Pounds): 313 General Appearance: alert EENT: normal ENT inspection Neck: normal alignment Cardiovascular: normal peripheral pulses, normal rate, regular rhythm Respiratory/Chest: chest wall non-tender, lungs clear, normal breath sounds Abdomen: normal bowel sounds, non tender, soft Extremities: normal inspection Edema: no edema noted Arm (L), no edema noted Arm (R), no edema noted Leg (L), no edema noted Leg (R), no edema noted Pedal (L), no edema noted Pedal (R), no edema noted Generalized Neurologic: responsive, motor weakness Skin: normal pigmentation, warm/dry David Faulkner DO Jan 19, 2018 15:59
[2018-01-19 20:00] VITALS: BP 158/94
[2018-01-20] VITALS (9 sets, daily range): BP systolic 121–164; BP diastolic 73–90
[2018-01-20 05:58] LABS: HEMATOCRIT 21.1 % (37.0-47.0); MEAN CORPUSCULAR VOLUME 95 FL (80-99); PLATELET COUNT 163 K/UL (150-450); RED BLOOD COUNT 2.23 M/UL (4.20-5.40); RED CELL DISTRIBUTION WIDTH 14.5 % (11.6-14.8); WHITE BLOOD COUNT 6.8 K/UL (4.8-10.8)
[2018-01-20 06:24] LABS: ALANINE AMINOTRANSFERASE 22 U/L (12-78); ALBUMIN/GLOBULIN RATIO 0.8 (1.0-2.7); ALKALINE PHOSPHATASE 49 U/L (46-116); ANION GAP 13 mmol/L (5-15); ASPARTATE AMINO TRANSFERASE 24 U/L (15-37); BILIRUBIN,TOTAL 0.4 MG/DL (0.2-1.0); BLOOD UREA NITROGEN 79 mg/dL (7-18); CALCIUM 8.4 MG/DL (8.5-10.1); CARBON DIOXIDE 25 MMOL/L (21-32); CHLORIDE 105 MMOL/L (98-107); CREATININE 11.1 MG/DL (0.55-1.30); PHOSPHORUS 6.7 MG/DL (2.5-4.9); POTASSIUM 4.1 MMOL/L (3.5-5.1); SODIUM 143 MMOL/L (136-145)
[2018-01-20 06:25] LABS: HEMOGLOBIN 6.5 G/DL (12.0-16.0)
[2018-01-20] MEDS: Atenolol 25mg tab ORAL SCH (09:00)
[2018-01-20] MEDS: Docusate 100mg cap ORAL SCH ×3 (09:09→17:14)
--- NOTE | 2018-01-20 10:28 | Nephrology Progress Note ---
Assessment/Plan Problem List: (1) ESRD (end stage renal disease) (2) Hypertension (3) Clotted dialysis access Assessment ESRD DM HTN now controlled Morbid obesity clotted left chest cath Plan Plan: transfuse up dose Renvela PO folic acid Change cath by radiologist, done yesterday- dialysed 01/18 BP and BS check discussed with RN next HD 01/21 Patient wished change her dialysis center Hepatitis panel ordered Subjective ROS Limited/Unobtainable: No Constitutional: Reports: malaise Objective Objective Last 24 Hour Vital Signs Date Time Temp Pulse Resp B/P (MAP) Pulse Ox O2 Delivery O2 Flow Rate FiO2 01/20/18 09:00 Room Air 01/20/18 09:00 70 141/83 01/20/18 09:00 70 141/83 01/20/18 08:00 97.9 70 18 141/83 (102) 100 97.9 01/20/18 08:00 71 01/20/18 04:00 82 20 139/74 (95) 99 01/20/18 04:00 80 01/20/18 00:00 72 01/20/18 00:00 98.1 77 18 121/73 (89) 99 98.1 01/19/18 21:00 Room Air 01/19/18 20:16 82 18 Room Air 21 01/19/18 20:00 76 01/19/18 20:00 99.5 86 18 158/94 (115) 99 99.5 01/19/18 16:00 97.9 69 20 135/81 (99) 99 97.9 01/19/18 16:00 78 01/19/18 12:00 97.2 79 20 120/77 (91) 100 97.2 01/19/18 12:00 71 Intake and Output 01/19/18 01/20/18 19:00 07:00 Intake Total 360 ml 300 ml Output Total 1 ml Balance 360 ml 299 ml Intake Oral 360 ml 300 ml Output Stool Total 1 ml Laboratory Tests 01/20/18 05:00: White Blood Count 6.8, Red Blood Count 2.23L, Hemoglobin 6.5*L, Hematocrit 21.1L , Mean Corpuscular Volume 95, Mean Corpuscular Hemoglobin 29.3, Mean Corpuscular Hemoglobin Concent 30.9L, Red Cell Distribution Width 14.5, Platelet Count 163, Mean Platelet Volume 7.3, Neutrophils (%) (Auto) , Lymphocytes (%) (Auto) , Monocytes (%) (Auto) , Eosinophils (%) (Auto) , Basophils (%) (Auto) , Differential Total Cells Counted 100, Neutrophils % ( Manual) 68, Lymphocytes % (Manual) 25, Monocytes % (Manual) 5, Eosinophils % ( Manual) 2, Basophils % (Manual) 0, Band Neutrophils 0, Platelet Estimate Adequate, Platelet Morphology Normal, Hypochromasia 2+, Anisocytosis 1+, Sodium Level 143, Potassium Level 4.1, Chloride Level 105, Carbon Dioxide Level 25, Anion Gap 13, Blood Urea Nitrogen 79H, Creatinine 11.1H, Estimat Glomerular Filtration Rate 4.5, Glucose Level 119H, Uric Acid 7.2, Calcium Level 8.4L, Phosphorus Level 6.7H, Magnesium Level 2.6H, Total Bilirubin 0.4, Aspartate Amino Transf (AST/SGOT) 24, Alanine Aminotransferase (ALT/SGPT) 22, Alkaline Phosphatase 49, Total Protein 6.7, Albumin 3.0L, Globulin 3.7, Albumin/Globulin Ratio 0.8L, Hepatitis B Surface Antigen [Pending], Hepatitis B Surface Antibody , Quant [Pending], Hepatitis C Antibody [Pending] Height (Feet): 5 Height (Inches): 2.00 Weight (Pounds): 315 General Appearance: no apparent distress Cardiovascular: regular rhythm Respiratory/Chest: decreased breath sounds Abdomen: other - obese Objective no change Thompson Gresham MD Jan 20, 2018 10:28
--- NOTE | 2018-01-20 10:44 | General Progress Note ---
Assessment/Plan Problem List: (1) Weak ICD Codes: R53.1 - Weakness SNOMED: 74826599 (2) Anemia ICD Codes: D64.9 - Anemia, unspecified SNOMED: 610847201 (3) ESRD (end stage renal disease) ICD Codes: N18.6 - End stage renal disease SNOMED: 51581628 (4) Hypertension ICD Codes: I10 - Essential (primary) hypertension SNOMED: 82182285 (5) Missed dialysis SNOMED: 617034070 (6) Clotted dialysis access ICD Codes: T82.49XA - Other complication of vascular dialysis catheter, initial encounter SNOMED: 12896838 Status: stable, progressing Assessment/Plan ot pt diet dialysis transfuse cbc bmp am dc plan w hh Subjective Constitutional: Reports: weakness Allergies: Coded Allergies: HEPARIN (Verified Allergy, Unknown, 01/17/18) negative reaction with eyes All Systems: reviewed and negative except above Subjective calm sleepy Objective Last 24 Hour Vital Signs Date Time Temp Pulse Resp B/P (MAP) Pulse Ox O2 Delivery O2 Flow Rate FiO2 01/20/18 09:00 Room Air 01/20/18 09:00 70 141/83 01/20/18 09:00 70 141/83 01/20/18 08:00 97.9 70 18 141/83 (102) 100 97.9 01/20/18 08:00 71 01/20/18 04:00 82 20 139/74 (95) 99 01/20/18 04:00 80 01/20/18 00:00 72 01/20/18 00:00 98.1 77 18 121/73 (89) 99 98.1 01/19/18 21:00 Room Air 01/19/18 20:16 82 18 Room Air 21 01/19/18 20:00 76 01/19/18 20:00 99.5 86 18 158/94 (115) 99 99.5 01/19/18 16:00 97.9 69 20 135/81 (99) 99 97.9 01/19/18 16:00 78 01/19/18 12:00 97.2 79 20 120/77 (91) 100 97.2 01/19/18 12:00 71 Intake and Output 01/19/18 01/20/18 19:00 07:00 Intake Total 360 ml 300 ml Output Total 1 ml Balance 360 ml 299 ml Intake Oral 360 ml 300 ml Output Stool Total 1 ml Laboratory Tests 01/20/18 05:00: White Blood Count 6.8, Red Blood Count 2.23L, Hemoglobin 6.5*L, Hematocrit 21.1L , Mean Corpuscular Volume 95, Mean Corpuscular Hemoglobin 29.3, Mean Corpuscular Hemoglobin Concent 30.9L, Red Cell Distribution Width 14.5, Platelet Count 163, Mean Platelet Volume 7.3, Neutrophils (%) (Auto) , Lymphocytes (%) (Auto) , Monocytes (%) (Auto) , Eosinophils (%) (Auto) , Basophils (%) (Auto) , Differential Total Cells Counted 100, Neutrophils % ( Manual) 68, Lymphocytes % (Manual) 25, Monocytes % (Manual) 5, Eosinophils % ( Manual) 2, Basophils % (Manual) 0, Band Neutrophils 0, Platelet Estimate Adequate, Platelet Morphology Normal, Hypochromasia 2+, Anisocytosis 1+, Sodium Level 143, Potassium Level 4.1, Chloride Level 105, Carbon Dioxide Level 25, Anion Gap 13, Blood Urea Nitrogen 79H, Creatinine 11.1H, Estimat Glomerular Filtration Rate 4.5, Glucose Level 119H, Uric Acid 7.2, Calcium Level 8.4L, Phosphorus Level 6.7H, Magnesium Level 2.6H, Total Bilirubin 0.4, Aspartate Amino Transf (AST/SGOT) 24, Alanine Aminotransferase (ALT/SGPT) 22, Alkaline Phosphatase 49, Total Protein 6.7, Albumin 3.0L, Globulin 3.7, Albumin/Globulin Ratio 0.8L, Hepatitis B Surface Antigen [Pending], Hepatitis B Surface Antibody , Quant [Pending], Hepatitis C Antibody [Pending] Height (Feet): 5 Height (Inches): 2.00 Weight (Pounds): 315 General Appearance: lethargic EENT: normal ENT inspection Neck: normal alignment Cardiovascular: normal peripheral pulses, normal rate, regular rhythm Respiratory/Chest: chest wall non-tender, lungs clear, normal breath sounds Abdomen: normal bowel sounds, non tender, soft Extremities: normal inspection Edema: no edema noted Arm (L), no edema noted Arm (R), no edema noted Leg (L), no edema noted Leg (R), no edema noted Pedal (L), no edema noted Pedal (R), no edema noted Generalized Neurologic: responsive, motor weakness Skin: normal pigmentation, warm/dry David Faulkner DO Jan 20, 2018 10:44
--- NOTE | 2018-01-20 13:06 | Pulmonology Progress Note ---
Assessment/Plan Problems: (1) Pulmonary edema (2) Missed dialysis (3) ESRD (end stage renal disease) (4) Clotted dialysis access (5) Hypertension Assessment/Plan BP still elevated, down to 130 HD as per renal f/u labs symptomatic treatment check electrolytes med/surg Subjective ROS Limited/Unobtainable: No Constitutional: Reports: no symptoms HEENT: Repors: no symptoms Respiratory: Reports: no symptoms Allergies: Coded Allergies: HEPARIN (Verified Allergy, Unknown, 01/17/18) negative reaction with eyes Objective Last 24 Hour Vital Signs Date Time Temp Pulse Resp B/P (MAP) Pulse Ox O2 Delivery O2 Flow Rate FiO2 01/20/18 09:00 Room Air 01/20/18 09:00 70 141/83 01/20/18 09:00 70 141/83 01/20/18 08:00 97.9 70 18 141/83 (102) 100 97.9 01/20/18 08:00 71 01/20/18 04:00 82 20 139/74 (95) 99 01/20/18 04:00 80 01/20/18 00:00 72 01/20/18 00:00 98.1 77 18 121/73 (89) 99 98.1 01/19/18 21:00 Room Air 01/19/18 20:16 82 18 Room Air 21 01/19/18 20:00 76 01/19/18 20:00 99.5 86 18 158/94 (115) 99 99.5 01/19/18 16:00 97.9 69 20 135/81 (99) 99 97.9 01/19/18 16:00 78 Intake and Output 01/19/18 01/20/18 19:00 07:00 Intake Total 360 ml 300 ml Output Total 1 ml Balance 360 ml 299 ml Intake Oral 360 ml 300 ml Output Stool Total 1 ml Objective General Appearance: WD/WN HEENT: normocephalic, atraumatic Respiratory/Chest: chest wall non-tender, lungs clear Breasts: no masses Cardiovascular: normal peripheral pulses, normal rate Abdomen: normal bowel sounds, soft, non tender Genitourinary: normal external genitalia Extremities: no clubbing Skin: no rash 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 Lymphatic: no neck adenopathy Laboratory Tests 01/20/18 05:00: White Blood Count 6.8, Red Blood Count 2.23L, Hemoglobin 6.5*L, Hematocrit 21.1L , Mean Corpuscular Volume 95, Mean Corpuscular Hemoglobin 29.3, Mean Corpuscular Hemoglobin Concent 30.9L, Red Cell Distribution Width 14.5, Platelet Count 163, Mean Platelet Volume 7.3, Neutrophils (%) (Auto) , Lymphocytes (%) (Auto) , Monocytes (%) (Auto) , Eosinophils (%) (Auto) , Basophils (%) (Auto) , Differential Total Cells Counted 100, Neutrophils % ( Manual) 68, Lymphocytes % (Manual) 25, Monocytes % (Manual) 5, Eosinophils % ( Manual) 2, Basophils % (Manual) 0, Band Neutrophils 0, Platelet Estimate Adequate, Platelet Morphology Normal, Hypochromasia 2+, Anisocytosis 1+, Sodium Level 143, Potassium Level 4.1, Chloride Level 105, Carbon Dioxide Level 25, Anion Gap 13, Blood Urea Nitrogen 79H, Creatinine 11.1H, Estimat Glomerular Filtration Rate 4.5, Glucose Level 119H, Uric Acid 7.2, Calcium Level 8.4L, Phosphorus Level 6.7H, Magnesium Level 2.6H, Total Bilirubin 0.4, Aspartate Amino Transf (AST/SGOT) 24, Alanine Aminotransferase (ALT/SGPT) 22, Alkaline Phosphatase 49, Total Protein 6.7, Albumin 3.0L, Globulin 3.7, Albumin/Globulin Ratio 0.8L, Hepatitis B Surface Antigen [Pending], Hepatitis B Surface Antibody , Quant [Pending], Hepatitis C Antibody [Pending] Current Medications Medications (Trade) Dose Ordered Sig/Everardo Route PRN Reason Start Time Stop Time Status Last Admin Dose Admin Acetaminophen (Tylenol) 650 mg Q4H PRN ORAL Fever 01/17/18 05:00 02/16/18 04:59 Albuterol/ Ipratropium (Albuterol/ Ipratropium) 3 ml Q4H PRN HHN Shortness of Breath 01/17/18 05:00 01/22/18 04:59 Amlodipine Besylate (Norvasc) 10 mg DAILY ORAL 01/18/18 09:00 02/17/18 08:59 Atenolol (Tenormin) 25 mg DAILY ORAL 01/17/18 09:00 02/16/18 08:59 Dextrose (Dextrose 50%) STAT PRN IV Hypoglycemia 01/17/18 05:00 02/16/18 04:59 Docusate Sodium (Colace) 100 mg THREE TIMES A DAY ORAL 01/17/18 13:00 02/16/18 12:59 01/20/18 09:09 Epoetin Evaristo (Procrit (for ESRD on dialysis)) 10,000 units SUN-SUN-SUN SUBQ 01/18/18 21:00 02/17/18 20:59 01/18/18 20:53 Fish Oil (Fish Oil) 1,000 mg BID ORAL 01/19/18 11:45 02/18/18 11:44 01/20/18 09:09 Folic Acid (Folate) 2 mg DAILY ORAL 01/18/18 12:15 02/17/18 12:14 01/20/18 09:09 Hydralazine HCl (Apresoline) 25 mg Q4H PRN ORAL bp over 160 syst 01/17/18 12:30 02/16/18 12:29 Ondansetron HCl (Zofran) 4 mg Q6H PRN IVP Nausea & Vomiting 01/17/18 05:00 02/16/18 04:59 01/18/18 23:34 Pantoprazole (Protonix) 40 mg DAILY ORAL 01/18/18 09:00 02/17/18 08:59 Polyethylene Glycol (Miralax) 17 gm DAILYPRN PRN ORAL Constipation 01/17/18 05:00 02/16/18 04:59 Sevelamer Carbonate (Renvela) 2,400 mg THREE TIMES A DAY ORAL 01/20/18 13:00 02/16/18 12:59 Sodium Chloride 1,000 ml @ 0 mls/hr Q0M IV 01/17/18 13:15 02/16/18 13:14 Temazepam (Restoril) 15 mg HSPRN PRN ORAL Insomnia 01/17/18 05:00 01/24/18 04:59 Porter Mckeon MD Jan 20, 2018 13:06
--- NOTE | 2018-01-20 16:00 | Cardiology Report ---
APPROVED REPORT EKG Measurement Heart [id number] DC 226P56 [id number] Sinus rhythm with 1st degree AV block Otherwise normal ECG
--- NOTE | 2018-01-20 16:11 | Cardiology Report ---
APPROVED REPORT EKG Measurement Heart [id number] MN 212P66 [id number] Sinus rhythm with 1st degree AV block Low voltage QRS Borderline ECG
--- NOTE | 2018-01-20 16:42 | Consultation ---
History of Present Illness General Date patient seen: Jan 20, 2018 Chief Complaint: General Complaint Reason for Consultation: vein access Present Illness HPI 47-year-old lady with history of hypertension, diabetes, morbid obesity, end-stage renal disease, on hemodialysis, who was brought to the emergency room as the dialysis access was not working. States in [place] prior and was planned with vein mapping for fistula. Had temporary tunneled left IJ HD cath placed recently by IR and being used for HD last 01/18. line not for meds or transfusions and should be reserved for HD only. Upon admission noted to be anemic with Hb 6 today. Requiring semi-urgent transfusion. Multiple attempts made by amazing nursing staff for peripheral access but unable to obtain. Surgery called to evaluate for possible central venous access for meds and transfusion. patient seen, chart reviewed, patient examined. currently well. states history of difficult venous access for past two years. Allergies: Coded Allergies: HEPARIN (Verified Allergy, Unknown, 01/17/18) negative reaction with eyes Medication History Scheduled Atenolol* (Tenormin*), 25 MG ORAL DAILY, (Reported) Clonidine Hcl* (Catapres*), 0.3 MG ORAL Q8HR, (Reported) Patient History History Provided By: Patient, Medical Record, PMD Healthcare decision maker SELF Resuscitation status Full Code Advanced Directive on File Past Medical/Surgical History Past Medical/Surgical History: (1) Ingestion of foreign material (2) Hyperkalemia (3) ESRD (end stage renal disease) (4) Hypertension (5) Pulmonary edema (6) Clotted dialysis access (7) Missed dialysis (8) Anemia (9) Weak Review of Systems All Other Systems: negative except mentioned in HPI Physical Exam General Appearance: no apparent distress, alert Lines, tubes and drains: other HEENT: normocephalic, atraumatic Neck: supple, normal inspection Respiratory/Chest: normal breath sounds, no respiratory distress, no accessory muscle use Cardiovascular/Chest: normal rate, regular rhythm Abdomen: normal bowel sounds, non tender, soft, no organomegaly Extremities: other - multiple prior peripheral upper extremity IV site healing wounds noted Skin Exam: warm/dry Neurologic: no motor/sensory deficits, alert, oriented x 3 Last 24 Hour Vital Signs Date Time Temp Pulse Resp B/P (MAP) Pulse Ox O2 Delivery O2 Flow Rate FiO2 9/16/18 12:00 98.2 76 19 138/79 (98) 100 98.2 01/20/18 12:00 68 01/20/18 09:00 Room Air 01/20/18 09:00 70 141/83 01/20/18 09:00 70 141/83 01/20/18 08:00 97.9 70 18 141/83 (102) 100 97.9 01/20/18 08:00 71 01/20/18 04:00 82 20 139/74 (95) 99 01/20/18 04:00 80 01/20/18 00:00 72 01/20/18 00:00 98.1 77 18 121/73 (89) 99 98.1 01/19/18 21:00 Room Air 01/19/18 20:16 82 18 Room Air 21 01/19/18 20:00 76 01/19/18 20:00 99.5 86 18 158/94 (115) 99 99.5 Intake and Output 01/19/18 01/20/18 19:00 07:00 Intake Total 360 ml 300 ml Output Total 1 ml Balance 360 ml 299 ml Intake Oral 360 ml 300 ml Output Stool Total 1 ml Laboratory Tests Test 01/20/18 05:00 White Blood Count 6.8 K/UL (4.8-10.8) Red Blood Count 2.23 M/UL (4.20-5.40) L Hemoglobin 6.5 G/DL (12.0-16.0) *L Hematocrit 21.1 % (37.0-47.0) L Mean Corpuscular Volume 95 FL (80-99) Mean Corpuscular Hemoglobin 29.3 PG (27.0-31.0) Mean Corpuscular Hemoglobin Concent 30.9 G/DL (32.0-36.0) L Red Cell Distribution Width 14.5 % (11.6-14.8) Platelet Count 163 K/UL (150-450) Mean Platelet Volume 7.3 FL (6.5-10.1) Neutrophils (%) (Auto) % (45.0-75.0) Lymphocytes (%) (Auto) % (20.0-45.0) Monocytes (%) (Auto) % (1.0-10.0) Eosinophils (%) (Auto) % (0.0-3.0) Basophils (%) (Auto) % (0.0-2.0) Differential Total Cells Counted 100 Neutrophils % (Manual) 68 % (45-75) Lymphocytes % (Manual) 25 % (20-45) Monocytes % (Manual) 5 % (1-10) Eosinophils % (Manual) 2 % (0-3) Basophils % (Manual) 0 % (0-2) Band Neutrophils 0 % (0-8) Platelet Estimate Adequate Platelet Morphology Normal Hypochromasia 2+ Anisocytosis 1+ Sodium Level 143 MMOL/L (136-145) Potassium Level 4.1 MMOL/L (3.5-5.1) Chloride Level 105 MMOL/L (98-107) Carbon Dioxide Level 25 MMOL/L (21-32) Anion Gap 13 mmol/L (5-15) Blood Urea Nitrogen 79 mg/dL (7-18) H Creatinine 11.1 MG/DL (0.55-1.30) H Estimat Glomerular Filtration Rate 4.5 mL/min (>60) Glucose Level 119 MG/DL (74-106) H Uric Acid 7.2 MG/DL (2.6-7.2) Calcium Level 8.4 MG/DL (8.5-10.1) L Phosphorus Level 6.7 MG/DL (2.5-4.9) H Magnesium Level 2.6 MG/DL (1.8-2.4) H Total Bilirubin 0.4 MG/DL (0.2-1.0) Aspartate Amino Transf (AST/SGOT) 24 U/L (15-37) Alanine Aminotransferase (ALT/SGPT) 22 U/L (12-78) Alkaline Phosphatase 49 U/L (46-116) Total Protein 6.7 G/DL (6.4-8.2) Albumin 3.0 G/DL (3.4-5.0) L Globulin 3.7 g/dL Albumin/Globulin Ratio 0.8 (1.0-2.7) L Hepatitis B Surface Antigen Pending Hepatitis B Surface Antibody, Quant Pending Hepatitis C Antibody Pending Height (Feet): 5 Height (Inches): 2.00 Weight (Pounds): 315 Medications Current Medications Medications (Trade) Dose Ordered Sig/Everardo Route PRN Reason Start Time Stop Time Status Last Admin Dose Admin Acetaminophen (Tylenol) 650 mg Q4H PRN ORAL Fever 01/17/18 05:00 02/16/18 04:59 Albuterol/ Ipratropium (Albuterol/ Ipratropium) 3 ml Q4H PRN HHN Shortness of Breath 01/17/18 05:00 01/22/18 04:59 Amlodipine Besylate (Norvasc) 10 mg DAILY ORAL 01/18/18 09:00 02/17/18 08:59 Atenolol (Tenormin) 25 mg DAILY ORAL 01/17/18 09:00 02/16/18 08:59 Dextrose (Dextrose 50%) STAT PRN IV Hypoglycemia 01/17/18 05:00 02/16/18 04:59 Docusate Sodium (Colace) 100 mg THREE TIMES A DAY ORAL 01/17/18 13:00 02/16/18 12:59 01/20/18 13:46 Epoetin Evaristo (Procrit (for ESRD on dialysis)) 10,000 units SUN-SUN-SUN SUBQ 01/18/18 21:00 02/17/18 20:59 01/18/18 20:53 Fish Oil (Fish Oil) 1,000 mg BID ORAL 01/19/18 11:45 02/18/18 11:44 01/20/18 09:09 Folic Acid (Folate) 2 mg DAILY ORAL 01/18/18 12:15 02/17/18 12:14 01/20/18 09:09 Hydralazine HCl (Apresoline) 25 mg Q4H PRN ORAL bp over 160 syst 01/17/18 12:30 02/16/18 12:29 Ondansetron HCl (Zofran) 4 mg Q6H PRN IVP Nausea & Vomiting 01/17/18 05:00 02/16/18 04:59 01/18/18 23:34 Pantoprazole (Protonix) 40 mg DAILY ORAL 01/18/18 09:00 02/17/18 08:59 Polyethylene Glycol (Miralax) 17 gm DAILYPRN PRN ORAL Constipation 01/17/18 05:00 02/16/18 04:59 Sevelamer Carbonate (Renvela) 2,400 mg THREE TIMES A DAY ORAL 01/20/18 13:00 02/16/18 12:59 01/20/18 13:47 Sodium Chloride 1,000 ml @ 0 mls/hr Q0M IV 01/17/18 13:15 02/16/18 13:14 Temazepam (Restoril) 15 mg HSPRN PRN ORAL Insomnia 01/17/18 05:00 01/24/18 04:59 Assessment/Plan Problem List: (1) ESRD (end stage renal disease) ICD Codes: N18.6 - End stage renal disease SNOMED: 44526299 (2) Anemia Assessment & Plan: anemia requiring urgent transfusion. hemoglobin 6 today and PRBC ordered but cannot be transfused because of lack of venous access. multiple attempts made by RN team but unable. discussed central venous access with patient. given history, needs, and medical condition would optimally reserve central access for emergency. using ultrasound guidance extremities evaluated and no good peripheral vein identified. was able to identify left external jugular EJ vein. on second attempt was able to place functional 18g left EJ line. okay to being transfusions please keep line patent and ensure does not get clotted. TKO if no meds or blood products needed. will monitor. unfortunately if line fails will likely require central venous access given limited peripheral access. ICD Codes: D64.9 - Anemia, unspecified SNOMED: 883232882 Status: stable Favio Siu Jan 20, 2018 16:42
[2018-01-20] MEDS ORDERED: Albuterol/Ipratropium 3ml neb HHN PRN (18:53)
[2018-01-20] MEDS ORDERED: Miralax 17gm pkt ORAL PRN (18:54)
[2018-01-20] MEDS ORDERED: HydrALAZINE 25mg tab ORAL PRN (18:54)
[2018-01-21 02:30] VITALS: BP 133/79
[2018-01-21 06:03] LABS: BASOPHILS % (AUTO) 1.3 % (0.0-2.0); EOSINOPHILS % (AUTO) 2.8 % (0.0-3.0); HEMATOCRIT 27.7 % (37.0-47.0); LYMPHOCYTES % (AUTO) 21.6 % (20.0-45.0); MEAN CORPUSCULAR VOLUME 90 FL (80-99); NEUTROPHILS % (AUTO) 68.3 % (45.0-75.0); PLATELET COUNT 168 K/UL (150-450); RED BLOOD COUNT 3.08 M/UL (4.20-5.40); RED CELL DISTRIBUTION WIDTH 15.7 % (11.6-14.8); WHITE BLOOD COUNT 8.3 K/UL (4.8-10.8)
[2018-01-21 06:16] LABS: ANION GAP 10 mmol/L (5-15); BLOOD UREA NITROGEN 82 mg/dL (7-18); CALCIUM 8.6 MG/DL (8.5-10.1); CARBON DIOXIDE 25 MMOL/L (21-32); CHLORIDE 107 MMOL/L (98-107); CREATININE 11.2 MG/DL (0.55-1.30); POTASSIUM 4.4 MMOL/L (3.5-5.1); SODIUM 142 MMOL/L (136-145)
[2018-01-21 06:46] LABS: ALANINE AMINOTRANSFERASE 26 U/L (12-78); ALBUMIN 3.3 G/DL (3.4-5.0); ALKALINE PHOSPHATASE 47 U/L (46-116); ASPARTATE AMINO TRANSFERASE 17 U/L (15-37); BILIRUBIN,DIRECT 0.1 MG/DL (0.0-0.3); BILIRUBIN,TOTAL 0.8 MG/DL (0.2-1.0); PHOSPHORUS 6.9 MG/DL (2.5-4.9)
[2018-01-21 08:00] VITALS: BP 138/69
[2018-01-21] MEDS: Atenolol 25mg tab ORAL SCH (09:00)
[2018-01-21] MEDS: Docusate 100mg cap ORAL SCH ×3 (09:00→18:00)
--- NOTE | 2018-01-21 10:38 | Nephrology Progress Note ---
Assessment/Plan Problem List: (1) ESRD (end stage renal disease) (2) Hypertension (3) Clotted dialysis access (4) Anemia in CKD (chronic kidney disease) Assessment ESRD DM HTN now controlled Morbid obesity clotted left chest cath Plan Plan: transfused up dose Renvela PO folic acid Change cath by radiologist, done yesterday- dialysed 01/18 BP and BS check discussed with RN next HD 01/21 Patient wished change her dialysis center Hepatitis panel ordered DC planning Subjective ROS Limited/Unobtainable: No Objective Objective Last 24 Hour Vital Signs Date Time Temp Pulse Resp B/P (MAP) Pulse Ox O2 Delivery O2 Flow Rate FiO2 01/21/18 09:00 Room Air 01/21/18 09:00 74 138/69 01/21/18 09:00 74 138/69 01/21/18 08:00 98.1 74 20 138/69 (92) 99 98.1 01/21/18 02:30 96.8 78 20 133/79 (97) 98 96.8 01/20/18 22:55 97.9 78 20 132/80 (97) 98 97.9 01/20/18 22:40 96.8 79 20 131/81 (98) 98 96.8 01/20/18 21:00 Room Air 01/20/18 20:41 69 16 Room Air 21 01/20/18 17:22 97.7 74 164/90 (114) 97.7 01/20/18 17:07 97.9 73 155/90 (111) 97.9 01/20/18 16:00 69 01/20/18 16:00 98.0 71 20 128/76 (93) 100 98.0 01/20/18 12:32 64 16 Room Air 21 01/20/18 12:00 98.2 76 19 138/79 (98) 100 98.2 01/20/18 12:00 68 Intake and Output 01/20/18 01/21/18 19:00 07:00 Intake Total 400 ml 120 ml Balance 400 ml 120 ml Intake Oral 400 ml 120 ml # Voids 3 1 # Bowel Movements 1 3 Laboratory Tests 01/20/18 21:45: Stool Occult Blood Positive 01/21/18 05:20: White Blood Count 8.3, Red Blood Count 3.08L, Hemoglobin 9.0#L, Hematocrit 27.7# L, Mean Corpuscular Volume 90, Mean Corpuscular Hemoglobin 29.2, Mean Corpuscular Hemoglobin Concent 32.5, Red Cell Distribution Width 15.7H, Platelet Count 168, Mean Platelet Volume 7.4, Neutrophils (%) (Auto) 68.3, Lymphocytes (%) (Auto) 21.6, Monocytes (%) (Auto) 6.0, Eosinophils (%) (Auto) 2.8, Basophils (%) (Auto) 1.3, Sodium Level 142, Potassium Level 4.4, Chloride Level 107, Carbon Dioxide Level 25, Anion Gap 10, Blood Urea Nitrogen 82H, Creatinine 11.2H, Estimat Glomerular Filtration Rate 4.4, Glucose Level 87, Calcium Level 8.6, Phosphorus Level 6.9H, Total Bilirubin 0.8, Direct Bilirubin 0.1, Aspartate Amino Transf (AST/SGOT) 17, Alanine Aminotransferase (ALT/SGPT) 26, Alkaline Phosphatase 47, Total Protein 6.6, Albumin 3.3L Height (Feet): 5 Height (Inches): 2.00 Weight (Pounds): 315 General Appearance: no apparent distress Cardiovascular: normal rate Respiratory/Chest: decreased breath sounds Abdomen: soft Objective no change Thompson Gresham MD Jan 21, 2018 10:38
--- NOTE | 2018-01-21 11:10 | Cardiology Report ---
APPROVED REPORT EXAM: Two-dimensional and M-mode echocardiogram with Doppler and color Doppler. INDICATION Hypertension M-Mode DIMENSIONS IVSd1.7 (0.7-1.1cm)Left Atrium (MM)4.2 (1.6-4.0cm) LVDd4.6 (3.5-5.6cm)Aortic Root3.2 (2.0-3.7cm) PWd1.7 (0.7-1.1cm)Aortic Cusp Exc.2.0 (1.5-2.0cm) LVDs2.4 (2.5-4.0cm) PWs2.1 cm Normal left ventricular chamber size, systolic function and wall motion. Left ventricular ejection fraction estimated to be 60-65 %. Mild left ventricular hypertrophy. No evidence of pericardial effusion. Mild left atrial enlargement. Right cardiac chamber sizes are within normal limits. Focal aortic valve sclerosis with adequate cusp excursion. Midly thickened mitral valve leaflets with normal excursion. Mild mitral annulus and aortic root calcification. Normal pulmonic valve structure. Normal tricuspid valve structure. IVC measures at 1.7 cm with physiological collapse. A color flow and spectral Doppler study was performed and revealed: Mild aortic insufficiency. Mild mitral regurgitation. reduced left ventricular relaxation c/w impaired relaxation diastolic dysfunction. Trace tricuspid regurgitation. Tricuspid systolic velocities suggests peak right ventricular systolic pressure of 31 mmHg. No pulmonic regurgitation present.
[2018-01-21 12:00] VITALS: BP 154/90
--- NOTE | 2018-01-21 12:35 | Cardiac Electrophysiology PN ---
Assessment/Plan Assessment/Plan 1. Accelerated hypertension. On Norvasc 10 mg daily,atenolol 25 mg daily, prn hydralazine and HD. 2. First-degree AV block. No Syncope 3. Clotted dialysis access. Had dialysis via the new dialysis access line. FU Dr Gresham Subjective Subjective No CP or SOB. Awaiting HD today. RN and at bedside Objective Last 24 Hour Vital Signs Date Time Temp Pulse Resp B/P (MAP) Pulse Ox O2 Delivery O2 Flow Rate FiO2 01/21/18 12:00 98.8 76 20 154/90 (111) 98 98.8 01/21/18 09:00 Room Air 01/21/18 09:00 74 138/69 01/21/18 09:00 74 138/69 01/21/18 08:00 98.1 74 20 138/69 (92) 99 98.1 01/21/18 02:30 96.8 78 20 133/79 (97) 98 96.8 01/20/18 22:55 97.9 78 20 132/80 (97) 98 97.9 01/20/18 22:40 96.8 79 20 131/81 (98) 98 96.8 01/20/18 21:00 Room Air 01/20/18 20:41 69 16 Room Air 21 01/20/18 17:22 97.7 74 164/90 (114) 97.7 01/20/18 17:07 97.9 73 155/90 (111) 97.9 01/20/18 16:00 69 01/20/18 16:00 98.0 71 20 128/76 (93) 100 98.0 Intake and Output 01/20/18 01/21/18 19:00 07:00 Intake Total 400 ml 120 ml Balance 400 ml 120 ml Intake Oral 400 ml 120 ml # Voids 3 1 # Bowel Movements 1 3 Laboratory Tests Test 01/20/18 21:45 01/21/18 05:20 Stool Occult Blood Positive (NEGATIVE) White Blood Count 8.3 K/UL (4.8-10.8) Red Blood Count 3.08 M/UL (4.20-5.40) L Hemoglobin 9.0 G/DL (12.0-16.0) #L Hematocrit 27.7 % (37.0-47.0) #L Mean Corpuscular Volume 90 FL (80-99) Mean Corpuscular Hemoglobin 29.2 PG (27.0-31.0) Mean Corpuscular Hemoglobin Concent 32.5 G/DL (32.0-36.0) Red Cell Distribution Width 15.7 % (11.6-14.8) H Platelet Count 168 K/UL (150-450) Mean Platelet Volume 7.4 FL (6.5-10.1) Neutrophils (%) (Auto) 68.3 % (45.0-75.0) Lymphocytes (%) (Auto) 21.6 % (20.0-45.0) Monocytes (%) (Auto) 6.0 % (1.0-10.0) Eosinophils (%) (Auto) 2.8 % (0.0-3.0) Basophils (%) (Auto) 1.3 % (0.0-2.0) Sodium Level 142 MMOL/L (136-145) Potassium Level 4.4 MMOL/L (3.5-5.1) Chloride Level 107 MMOL/L (98-107) Carbon Dioxide Level 25 MMOL/L (21-32) Anion Gap 10 mmol/L (5-15) Blood Urea Nitrogen 82 mg/dL (7-18) H Creatinine 11.2 MG/DL (0.55-1.30) H Estimat Glomerular Filtration Rate 4.4 mL/min (>60) Glucose Level 87 MG/DL (74-106) Calcium Level 8.6 MG/DL (8.5-10.1) Phosphorus Level 6.9 MG/DL (2.5-4.9) H Total Bilirubin 0.8 MG/DL (0.2-1.0) Direct Bilirubin 0.1 MG/DL (0.0-0.3) Aspartate Amino Transf (AST/SGOT) 17 U/L (15-37) Alanine Aminotransferase (ALT/SGPT) 26 U/L (12-78) Alkaline Phosphatase 47 U/L (46-116) Total Protein 6.6 G/DL (6.4-8.2) Albumin 3.3 G/DL (3.4-5.0) L Objective HEAD AND NECK: No JVD. LUNGS: Clear. CHEST: New dialysis access in the left subclavian. CARDIOVASCULAR: Regular. S1 and S2 with no gallop or murmur. ABDOMEN: Morbidly obese. EXTREMITIES: 1+ pitting edema. Frank Saab MD Jan 21, 2018 12:35
--- NOTE | 2018-01-21 13:06 | General Surgery Progress Note ---
General Surgery-Progress Note Subjective Additional Comments no acute events. EJ line functional. received transfusion. labs improved and stable. Objective Last 24 Hour Vital Signs Date Time Temp Pulse Resp B/P (MAP) Pulse Ox O2 Delivery O2 Flow Rate FiO2 01/21/18 12:00 98.8 76 20 154/90 (111) 98 98.8 01/21/18 09:00 Room Air 01/21/18 09:00 74 138/69 01/21/18 09:00 74 138/69 01/21/18 08:00 98.1 74 20 138/69 (92) 99 98.1 01/21/18 02:30 96.8 78 20 133/79 (97) 98 96.8 01/20/18 22:55 97.9 78 20 132/80 (97) 98 97.9 01/20/18 22:40 96.8 79 20 131/81 (98) 98 96.8 01/20/18 21:00 Room Air 01/20/18 20:41 69 16 Room Air 21 01/20/18 17:22 97.7 74 164/90 (114) 97.7 01/20/18 17:07 97.9 73 155/90 (111) 97.9 01/20/18 16:00 69 01/20/18 16:00 98.0 71 20 128/76 (93) 100 98.0 I&O Intake and Output 01/20/18 01/21/18 19:00 07:00 Intake Total 400 ml 120 ml Balance 400 ml 120 ml Intake Oral 400 ml 120 ml # Voids 3 1 # Bowel Movements 1 3 Dressing: dry Wound: clean Drains: none Cardiovascular: RSR Respiratory: clear Abdomen: soft, flat, non-tender, present bowel sounds Extremities: no cyanosis, other Laboratory Tests Test 01/20/18 21:45 01/21/18 05:20 Stool Occult Blood Positive (NEGATIVE) White Blood Count 8.3 K/UL (4.8-10.8) Red Blood Count 3.08 M/UL (4.20-5.40) L Hemoglobin 9.0 G/DL (12.0-16.0) #L Hematocrit 27.7 % (37.0-47.0) #L Mean Corpuscular Volume 90 FL (80-99) Mean Corpuscular Hemoglobin 29.2 PG (27.0-31.0) Mean Corpuscular Hemoglobin Concent 32.5 G/DL (32.0-36.0) Red Cell Distribution Width 15.7 % (11.6-14.8) H Platelet Count 168 K/UL (150-450) Mean Platelet Volume 7.4 FL (6.5-10.1) Neutrophils (%) (Auto) 68.3 % (45.0-75.0) Lymphocytes (%) (Auto) 21.6 % (20.0-45.0) Monocytes (%) (Auto) 6.0 % (1.0-10.0) Eosinophils (%) (Auto) 2.8 % (0.0-3.0) Basophils (%) (Auto) 1.3 % (0.0-2.0) Sodium Level 142 MMOL/L (136-145) Potassium Level 4.4 MMOL/L (3.5-5.1) Chloride Level 107 MMOL/L (98-107) Carbon Dioxide Level 25 MMOL/L (21-32) Anion Gap 10 mmol/L (5-15) Blood Urea Nitrogen 82 mg/dL (7-18) H Creatinine 11.2 MG/DL (0.55-1.30) H Estimat Glomerular Filtration Rate 4.4 mL/min (>60) Glucose Level 87 MG/DL (74-106) Calcium Level 8.6 MG/DL (8.5-10.1) Phosphorus Level 6.9 MG/DL (2.5-4.9) H Total Bilirubin 0.8 MG/DL (0.2-1.0) Direct Bilirubin 0.1 MG/DL (0.0-0.3) Aspartate Amino Transf (AST/SGOT) 17 U/L (15-37) Alanine Aminotransferase (ALT/SGPT) 26 U/L (12-78) Alkaline Phosphatase 47 U/L (46-116) Total Protein 6.6 G/DL (6.4-8.2) Albumin 3.3 G/DL (3.4-5.0) L Plan Problems: (1) ESRD (end stage renal disease) (2) Anemia Assessment & Plan: anemia requiring urgent transfusion. hemoglobin 6 today and PRBC ordered but cannot be transfused because of lack of venous access. multiple attempts made by RN team but unable. discussed central venous access with patient. given history, needs, and medical condition would optimally reserve central access for emergency. using ultrasound guidance extremities evaluated and no good peripheral vein identified. was able to identify left external jugular EJ vein. on second attempt was able to place functional 18g left EJ line. okay to being transfusions please keep line patent and ensure does not get clotted. TKO if no meds or blood products needed. will monitor. unfortunately if line fails will likely require central venous access given limited peripheral access. line functional. prbc given. labs improved thank you. Favio Siu Jan 21, 2018 13:06
--- NOTE | 2018-01-21 13:35 | Pulmonology Progress Note ---
Assessment/Plan Problems: (1) Pulmonary edema (2) Missed dialysis (3) ESRD (end stage renal disease) (4) Clotted dialysis access (5) Hypertension Assessment/Plan s/p prbc, last night BP still elevated, down to 130 HD as per renal f/u labs symptomatic treatment check electrolytes med/surg dc planing Subjective ROS Limited/Unobtainable: No Constitutional: Reports: no symptoms HEENT: Repors: no symptoms Respiratory: Reports: no symptoms Allergies: Coded Allergies: HEPARIN (Verified Allergy, Unknown, 01/17/18) negative reaction with eyes Objective Last 24 Hour Vital Signs Date Time Temp Pulse Resp B/P (MAP) Pulse Ox O2 Delivery O2 Flow Rate FiO2 01/21/18 12:00 98.8 76 20 154/90 (111) 98 98.8 01/21/18 09:00 Room Air 01/21/18 09:00 74 138/69 01/21/18 09:00 74 138/69 01/21/18 08:00 98.1 74 20 138/69 (92) 99 98.1 01/21/18 02:30 96.8 78 20 133/79 (97) 98 96.8 01/20/18 22:55 97.9 78 20 132/80 (97) 98 97.9 01/20/18 22:40 96.8 79 20 131/81 (98) 98 96.8 01/20/18 21:00 Room Air 01/20/18 20:41 69 16 Room Air 21 01/20/18 17:22 97.7 74 164/90 (114) 97.7 01/20/18 17:07 97.9 73 155/90 (111) 97.9 01/20/18 16:00 69 01/20/18 16:00 98.0 71 20 128/76 (93) 100 98.0 Intake and Output 01/20/18 01/21/18 19:00 07:00 Intake Total 400 ml 120 ml Balance 400 ml 120 ml Intake Oral 400 ml 120 ml # Voids 3 1 # Bowel Movements 1 3 Objective General Appearance: WD/WN HEENT: normocephalic, atraumatic Respiratory/Chest: chest wall non-tender, lungs clear Breasts: no masses Cardiovascular: normal peripheral pulses, normal rate Abdomen: normal bowel sounds, soft, non tender Genitourinary: normal external genitalia Extremities: no clubbing Skin: no rash Neurologic/Psychiatric: adult education professional II-XII grossly normal Lymphatic: no neck adenopathy Laboratory Tests 01/20/18 21:45: Stool Occult Blood Positive 01/21/18 05:20: White Blood Count 8.3, Red Blood Count 3.08L, Hemoglobin 9.0#L, Hematocrit 27.7# L, Mean Corpuscular Volume 90, Mean Corpuscular Hemoglobin 29.2, Mean Corpuscular Hemoglobin Concent 32.5, Red Cell Distribution Width 15.7H, Platelet Count 168, Mean Platelet Volume 7.4, Neutrophils (%) (Auto) 68.3, Lymphocytes (%) (Auto) 21.6, Monocytes (%) (Auto) 6.0, Eosinophils (%) (Auto) 2.8, Basophils (%) (Auto) 1.3, Sodium Level 142, Potassium Level 4.4, Chloride Level 107, Carbon Dioxide Level 25, Anion Gap 10, Blood Urea Nitrogen 82H, Creatinine 11.2H, Estimat Glomerular Filtration Rate 4.4, Glucose Level 87, Calcium Level 8.6, Phosphorus Level 6.9H, Total Bilirubin 0.8, Direct Bilirubin 0.1, Aspartate Amino Transf (AST/SGOT) 17, Alanine Aminotransferase (ALT/SGPT) 26, Alkaline Phosphatase 47, Total Protein 6.6, Albumin 3.3L Current Medications Medications (Trade) Dose Ordered Sig/Everardo Route PRN Reason Start Time Stop Time Status Last Admin Dose Admin Acetaminophen (Tylenol) 650 mg Q4H PRN ORAL Fever 01/20/18 18:53 02/16/18 18:52 Albuterol/ Ipratropium (Albuterol/ Ipratropium) 3 ml Q4H PRN HHN Shortness of Breath 01/20/18 18:53 01/22/18 18:52 Amlodipine Besylate (Norvasc) 10 mg DAILY ORAL 01/21/18 09:00 02/20/18 08:59 Atenolol (Tenormin) 25 mg DAILY ORAL 01/21/18 09:00 02/20/18 08:59 Dextrose (Dextrose 50%) 25 ml STAT PRN IV Hypoglycemia 01/20/18 18:54 02/19/18 18:53 Dextrose (Dextrose 50%) 50 ml STAT PRN IV Hypoglycemia 01/20/18 18:55 02/19/18 18:54 Docusate Sodium (Colace) 100 mg THREE TIMES A DAY ORAL 01/21/18 09:00 02/20/18 08:59 Epoetin Evaristo (Procrit (for ESRD on dialysis)) 10,000 units SUN-SUN-SUN SUBQ 01/21/18 21:00 02/17/18 20:59 Fish Oil (Fish Oil) 1,000 mg BID ORAL 01/21/18 09:00 02/20/18 08:59 01/21/18 09:29 Folic Acid (Folate) 2 mg DAILY ORAL 01/21/18 09:00 02/20/18 08:59 01/21/18 09:29 Hydralazine HCl (Apresoline) 25 mg Q4H PRN ORAL bp over 160 syst 01/20/18 18:54 02/16/18 18:53 Ondansetron HCl (Zofran) 4 mg Q6H PRN IVP Nausea & Vomiting 01/20/18 18:54 02/16/18 18:53 Pantoprazole (Protonix) 40 mg DAILY ORAL 01/21/18 09:00 02/20/18 08:59 Polyethylene Glycol (Miralax) 17 gm DAILYPRN PRN ORAL Constipation 01/20/18 18:54 02/19/18 18:53 Sevelamer Carbonate (Renvela) 2,400 mg THREE TIMES A DAY ORAL 01/21/18 09:00 02/20/18 08:59 01/21/18 12:48 Sodium Chloride 1,000 ml @ 0 mls/hr Q0M IV 01/20/18 18:53 02/16/18 18:52 Temazepam (Restoril) 15 mg HSPRN PRN ORAL Insomnia 01/20/18 21:00 01/27/18 20:59 Porter Mckeon MD Jan 21, 2018 13:35
--- NOTE | 2018-01-21 14:29 | General Progress Note ---
Assessment/Plan Problem List: (1) Weak ICD Codes: R53.1 - Weakness SNOMED: 08453424 (2) Anemia ICD Codes: D64.9 - Anemia, unspecified SNOMED: 618417660 (3) ESRD (end stage renal disease) ICD Codes: N18.6 - End stage renal disease SNOMED: 23634512 (4) Hypertension ICD Codes: I10 - Essential (primary) hypertension SNOMED: 22854804 (5) Missed dialysis SNOMED: 978833450 (6) Clotted dialysis access ICD Codes: T82.49XA - Other complication of vascular dialysis catheter, initial encounter SNOMED: 59419494 Status: stable, progressing Assessment/Plan ot pt diet dialysis transfuse cbc bmp am dc plan w hh Subjective Constitutional: Reports: weakness Allergies: Coded Allergies: HEPARIN (Verified Allergy, Unknown, 01/17/18) negative reaction with eyes All Systems: reviewed and negative except above Subjective calm sleepy Objective Last 24 Hour Vital Signs Date Time Temp Pulse Resp B/P (MAP) Pulse Ox O2 Delivery O2 Flow Rate FiO2 01/21/18 12:00 98.8 76 20 154/90 (111) 98 98.8 01/21/18 09:00 Room Air 01/21/18 09:00 74 138/69 01/21/18 09:00 74 138/69 01/21/18 08:00 98.1 74 20 138/69 (92) 99 98.1 01/21/18 02:30 96.8 78 20 133/79 (97) 98 96.8 01/20/18 22:55 97.9 78 20 132/80 (97) 98 97.9 01/20/18 22:40 96.8 79 20 131/81 (98) 98 96.8 01/20/18 21:00 Room Air 01/20/18 20:41 69 16 Room Air 21 01/20/18 17:22 97.7 74 164/90 (114) 97.7 01/20/18 17:07 97.9 73 155/90 (111) 97.9 01/20/18 16:00 69 01/20/18 16:00 98.0 71 20 128/76 (93) 100 98.0 Intake and Output 01/20/18 01/21/18 19:00 07:00 Intake Total 400 ml 120 ml Balance 400 ml 120 ml Intake Oral 400 ml 120 ml # Voids 3 1 # Bowel Movements 1 3 Laboratory Tests 01/20/18 21:45: Stool Occult Blood Positive 01/21/18 05:20: White Blood Count 8.3, Red Blood Count 3.08L, Hemoglobin 9.0#L, Hematocrit 27.7# L, Mean Corpuscular Volume 90, Mean Corpuscular Hemoglobin 29.2, Mean Corpuscular Hemoglobin Concent 32.5, Red Cell Distribution Width 15.7H, Platelet Count 168, Mean Platelet Volume 7.4, Neutrophils (%) (Auto) 68.3, Lymphocytes (%) (Auto) 21.6, Monocytes (%) (Auto) 6.0, Eosinophils (%) (Auto) 2.8, Basophils (%) (Auto) 1.3, Sodium Level 142, Potassium Level 4.4, Chloride Level 107, Carbon Dioxide Level 25, Anion Gap 10, Blood Urea Nitrogen 82H, Creatinine 11.2H, Estimat Glomerular Filtration Rate 4.4, Glucose Level 87, Calcium Level 8.6, Phosphorus Level 6.9H, Total Bilirubin 0.8, Direct Bilirubin 0.1, Aspartate Amino Transf (AST/SGOT) 17, Alanine Aminotransferase (ALT/SGPT) 26, Alkaline Phosphatase 47, Total Protein 6.6, Albumin 3.3L Height (Feet): 5 Height (Inches): 2.00 Weight (Pounds): 307 General Appearance: alert EENT: normal ENT inspection Neck: normal alignment Cardiovascular: normal peripheral pulses, normal rate, regular rhythm Respiratory/Chest: chest wall non-tender, lungs clear, normal breath sounds Abdomen: normal bowel sounds, non tender, soft Extremities: normal inspection Edema: no edema noted Arm (L), no edema noted Arm (R), no edema noted Leg (L), no edema noted Leg (R), no edema noted Pedal (L), no edema noted Pedal (R), no edema noted Generalized Neurologic: responsive, motor weakness Skin: normal pigmentation, warm/dry David Faulkner DO Jan 21, 2018 14:29
[2018-01-21 16:00] VITALS: BP 155/97
[2018-01-21 20:00] VITALS: BP 139/74
[2018-01-21] MEDS: Epogen (for ESRD on dialysis) SUBQ SCH (21:00)
[2018-01-22] VITALS: BP 156/91
[2018-01-22 04:00] VITALS: BP 149/84
[2018-01-22 08:00] VITALS: BP 154/94
[2018-01-22] MEDS: Docusate 100mg cap ORAL SCH ×4 (08:38→18:00)
[2018-01-22] MEDS: Atenolol 25mg tab ORAL SCH (08:43)
--- NOTE | 2018-01-22 09:05 | General Surgery Progress Note ---
General Surgery-Progress Note Subjective Symptoms: improved Additional Comments doing well. comfortable. line functional Objective Last 24 Hour Vital Signs Date Time Temp Pulse Resp B/P (MAP) Pulse Ox O2 Delivery O2 Flow Rate FiO2 01/22/18 08:44 85 154/94 01/22/18 08:43 85 154/94 01/22/18 08:03 77 18 Room Air 21 01/22/18 08:00 97.7 85 20 154/94 (114) 97 97.7 01/22/18 04:00 98.8 77 18 149/84 (105) 99 98.8 01/22/18 00:00 99.0 74 18 156/91 (112) 97 99.0 01/21/18 21:00 Room Air 01/21/18 20:00 98.9 84 20 139/74 (95) 95 98.9 01/21/18 20:00 82 18 Room Air 21 01/21/18 19:10 98.8 01/21/18 18:40 98.8 01/21/18 18:19 Room Air 21 01/21/18 16:00 98.8 71 20 155/97 (116) 99 98.8 01/21/18 14:43 72 18 Room Air 21 01/21/18 13:20 Room Air 21 01/21/18 12:00 98.8 76 20 154/90 (111) 98 98.8 I&O Intake and Output 01/21/18 01/22/18 19:00 07:00 Intake Total 100 ml Output Total 2500 ml Balance -2500 ml 100 ml Intake Oral 100 ml Hemodialysis UF 2500 ml # Bowel Movements 1 1 Dressing: dry Wound: clean, dry Cardiovascular: RSR Respiratory: clear Abdomen: soft, flat, non-tender, present bowel sounds Extremities: other Plan Problems: (1) ESRD (end stage renal disease) (2) Anemia Assessment & Plan: anemia requiring urgent transfusion. hemoglobin 6 today and PRBC ordered but cannot be transfused because of lack of venous access. multiple attempts made by RN team but unable. discussed central venous access with patient. given history, needs, and medical condition would optimally reserve central access for emergency. using ultrasound guidance extremities evaluated and no good peripheral vein identified. was able to identify left external jugular EJ vein. on second attempt was able to place functional 18g left EJ line. okay to being transfusions please keep line patent and ensure does not get clotted. TKO if no meds or blood products needed. will monitor. unfortunately if line fails will likely require central venous access given limited peripheral access. line functional. improving thank you. Favio Siu Jan 22, 2018 09:05
--- NOTE | 2018-01-22 10:04 | Nephrology Progress Note ---
Assessment/Plan Problem List: (1) ESRD (end stage renal disease) (2) Hypertension (3) Clotted dialysis access (4) Anemia in CKD (chronic kidney disease) Assessment ESRD DM HTN now controlled Morbid obesity clotted left chest cath Plan Plan: refusing blood work today transfused up dose Renvela PO folic acid Change cath by radiologist, done yesterday- dialysed 01/18 BP and BS check discussed with RN next HD 01/21 Patient wished change her dialysis center Hepatitis panel ordered DC planning Subjective ROS Limited/Unobtainable: No Objective Objective Last 24 Hour Vital Signs Date Time Temp Pulse Resp B/P (MAP) Pulse Ox O2 Delivery O2 Flow Rate FiO2 01/22/18 08:44 85 154/94 01/22/18 08:43 85 154/94 01/22/18 08:03 77 18 Room Air 21 01/22/18 08:00 97.7 85 20 154/94 (114) 97 97.7 01/22/18 04:00 98.8 77 18 149/84 (105) 99 98.8 01/22/18 00:00 99.0 74 18 156/91 (112) 97 99.0 01/21/18 21:00 Room Air 01/21/18 20:00 98.9 84 20 139/74 (95) 95 98.9 01/21/18 20:00 82 18 Room Air 21 01/21/18 19:10 98.8 01/21/18 18:40 98.8 01/21/18 18:19 Room Air 21 01/21/18 16:00 98.8 71 20 155/97 (116) 99 98.8 01/21/18 14:43 72 18 Room Air 21 01/21/18 13:20 Room Air 21 01/21/18 12:00 98.8 76 20 154/90 (111) 98 98.8 Intake and Output 01/21/18 01/22/18 19:00 07:00 Intake Total 100 ml Output Total 2500 ml Balance -2500 ml 100 ml Intake Oral 100 ml Hemodialysis UF 2500 ml # Bowel Movements 1 1 Height (Feet): 5 Height (Inches): 2.00 Weight (Pounds): 301 General Appearance: no apparent distress Objective no change Thompson Gresham MD Jan 22, 2018 10:04
[2018-01-22 10:09] LABS: BASOPHILS % (AUTO) 1.3 % (0.0-2.0); EOSINOPHILS % (AUTO) 2.7 % (0.0-3.0); HEMATOCRIT 28.8 % (37.0-47.0); HEMOGLOBIN 9.1 G/DL (12.0-16.0); LYMPHOCYTES % (AUTO) 19.2 % (20.0-45.0); MEAN CORPUSCULAR VOLUME 90 FL (80-99); MONOCYTES % (AUTO) 5.8 % (1.0-10.0); NEUTROPHILS % (AUTO) 71.2 % (45.0-75.0); PLATELET COUNT 176 K/UL (150-450); RED CELL DISTRIBUTION WIDTH 15.5 % (11.6-14.8)
[2018-01-22 10:20] LABS: ANION GAP 11 mmol/L (5-15); BLOOD UREA NITROGEN 57 mg/dL (7-18); CALCIUM 8.7 MG/DL (8.5-10.1); CARBON DIOXIDE 27 MMOL/L (21-32); CHLORIDE 104 MMOL/L (98-107); CREATININE 8.8 MG/DL (0.55-1.30); POTASSIUM 3.8 MMOL/L (3.5-5.1); SODIUM 142 MMOL/L (136-145)
--- NOTE | 2018-01-22 10:55 | Cardiac Electrophysiology PN ---
Assessment/Plan Assessment/Plan 1. Accelerated hypertension. On Norvasc 10 mg daily, Atenolol 25 mg daily and prn hydralazine and HD. 2. First-degree AV block. No Syncope 3. Clotted dialysis access. Had dialysis via the new dialysis access line. KARIN HELMS at bedside Subjective Subjective No CP or SOB. Had HD yesterday. at bedside Objective Last 24 Hour Vital Signs Date Time Temp Pulse Resp B/P (MAP) Pulse Ox O2 Delivery O2 Flow Rate FiO2 01/22/18 09:00 Room Air 01/22/18 08:44 85 154/94 01/22/18 08:43 85 154/94 01/22/18 08:03 77 18 Room Air 21 01/22/18 08:00 97.7 85 20 154/94 (114) 97 97.7 01/22/18 04:00 98.8 77 18 149/84 (105) 99 98.8 01/22/18 00:00 99.0 74 18 156/91 (112) 97 99.0 01/21/18 21:00 Room Air 01/21/18 20:00 98.9 84 20 139/74 (95) 95 98.9 01/21/18 20:00 82 18 Room Air 21 01/21/18 19:10 98.8 01/21/18 18:40 98.8 01/21/18 18:19 Room Air 21 01/21/18 16:00 98.8 71 20 155/97 (116) 99 98.8 01/21/18 14:43 72 18 Room Air 21 01/21/18 13:20 Room Air 21 01/21/18 12:00 98.8 76 20 154/90 (111) 98 98.8 Intake and Output 01/21/18 01/22/18 19:00 07:00 Intake Total 100 ml Output Total 2500 ml Balance -2500 ml 100 ml Intake Oral 100 ml Hemodialysis UF 2500 ml # Bowel Movements 1 1 Laboratory Tests Test 01/22/18 09:45 White Blood Count 8.0 K/UL (4.8-10.8) Red Blood Count 3.20 M/UL (4.20-5.40) L Hemoglobin 9.1 G/DL (12.0-16.0) L Hematocrit 28.8 % (37.0-47.0) L Mean Corpuscular Volume 90 FL (80-99) Mean Corpuscular Hemoglobin 28.5 PG (27.0-31.0) Mean Corpuscular Hemoglobin Concent 31.7 G/DL (32.0-36.0) L Red Cell Distribution Width 15.5 % (11.6-14.8) H Platelet Count 176 K/UL (150-450) Mean Platelet Volume 6.9 FL (6.5-10.1) Neutrophils (%) (Auto) 71.2 % (45.0-75.0) Lymphocytes (%) (Auto) 19.2 % (20.0-45.0) L Monocytes (%) (Auto) 5.8 % (1.0-10.0) Eosinophils (%) (Auto) 2.7 % (0.0-3.0) Basophils (%) (Auto) 1.3 % (0.0-2.0) Sodium Level 142 MMOL/L (136-145) Potassium Level 3.8 MMOL/L (3.5-5.1) Chloride Level 104 MMOL/L (98-107) Carbon Dioxide Level 27 MMOL/L (21-32) Anion Gap 11 mmol/L (5-15) Blood Urea Nitrogen 57 mg/dL (7-18) H Creatinine 8.8 MG/DL (0.55-1.30) H Estimat Glomerular Filtration Rate 5.8 mL/min (>60) Glucose Level 133 MG/DL (74-106) H Calcium Level 8.7 MG/DL (8.5-10.1) Objective HEAD AND NECK: No JVD. LUNGS: Clear. CHEST: New dialysis access in the left subclavian. CARDIOVASCULAR: Regular. S1 and S2 with no gallop or murmur. ABDOMEN: Morbidly obese. EXTREMITIES: 1+ pitting edema. Frank Saab MD Jan 22, 2018 10:55
--- NOTE | 2018-01-22 11:44 | Pulmonology Progress Note ---
Assessment/Plan Problems: (1) Pulmonary edema (2) Missed dialysis (3) ESRD (end stage renal disease) (4) Clotted dialysis access (5) Hypertension Assessment/Plan awaiting municipal clerk to see BP still elevated, down to 130 HD as per renal f/u labs symptomatic treatment check electrolytes med/surg HD center is arranged already dc planing Subjective ROS Limited/Unobtainable: No Constitutional: Reports: no symptoms HEENT: Repors: no symptoms Respiratory: Reports: no symptoms Allergies: Coded Allergies: HEPARIN (Verified Allergy, Unknown, 01/17/18) negative reaction with eyes Objective Last 24 Hour Vital Signs Date Time Temp Pulse Resp B/P (MAP) Pulse Ox O2 Delivery O2 Flow Rate FiO2 01/22/18 09:00 Room Air 01/22/18 08:44 85 154/94 01/22/18 08:43 85 154/94 01/22/18 08:03 77 18 Room Air 21 01/22/18 08:00 97.7 85 20 154/94 (114) 97 97.7 01/22/18 04:00 98.8 77 18 149/84 (105) 99 98.8 01/22/18 00:00 99.0 74 18 156/91 (112) 97 99.0 01/21/18 21:00 Room Air 01/21/18 20:00 98.9 84 20 139/74 (95) 95 98.9 01/21/18 20:00 82 18 Room Air 21 01/21/18 19:10 98.8 01/21/18 18:40 98.8 01/21/18 18:19 Room Air 21 01/21/18 16:00 98.8 71 20 155/97 (116) 99 98.8 01/21/18 14:43 72 18 Room Air 21 01/21/18 13:20 Room Air 21 01/21/18 12:00 98.8 76 20 154/90 (111) 98 98.8 Intake and Output 01/21/18 01/22/18 19:00 07:00 Intake Total 100 ml Output Total 2500 ml Balance -2500 ml 100 ml Intake Oral 100 ml Hemodialysis UF 2500 ml # Bowel Movements 1 1 Objective General Appearance: WD/WN HEENT: normocephalic, atraumatic Respiratory/Chest: chest wall non-tender, lungs clear Breasts: no masses Cardiovascular: normal peripheral pulses, normal rate Abdomen: normal bowel sounds, soft, non tender Genitourinary: normal external genitalia Extremities: no clubbing Skin: no rash Neurologic/Psychiatric: 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 II-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 grossly normal Lymphatic: no neck adenopathy Laboratory Tests 01/22/18 09:45: White Blood Count 8.0, Red Blood Count 3.20L, Hemoglobin 9.1L, Hematocrit 28.8L , Mean Corpuscular Volume 90, Mean Corpuscular Hemoglobin 28.5, Mean Corpuscular Hemoglobin Concent 31.7L, Red Cell Distribution Width 15.5H, Platelet Count 176, Mean Platelet Volume 6.9, Neutrophils (%) (Auto) 71.2, Lymphocytes (%) (Auto) 19.2L, Monocytes (%) (Auto) 5.8, Eosinophils (%) (Auto) 2.7, Basophils (%) (Auto) 1.3, Sodium Level 142, Potassium Level 3.8, Chloride Level 104, Carbon Dioxide Level 27, Anion Gap 11, Blood Urea Nitrogen 57H, Creatinine 8.8H, Estimat Glomerular Filtration Rate 5.8, Glucose Level 133H, Calcium Level 8.7 Current Medications Medications (Trade) Dose Ordered Sig/Everardo Route PRN Reason Start Time Stop Time Status Last Admin Dose Admin Acetaminophen (Tylenol) 650 mg Q4H PRN ORAL Fever 01/20/18 18:53 02/16/18 18:52 01/21/18 18:40 Albuterol/ Ipratropium (Albuterol/ Ipratropium) 3 ml Q4H PRN HHN Shortness of Breath 01/20/18 18:53 01/22/18 18:52 Amlodipine Besylate (Norvasc) 10 mg DAILY ORAL 01/21/18 09:00 02/20/18 08:59 Atenolol (Tenormin) 25 mg DAILY ORAL 01/21/18 09:00 02/20/18 08:59 Dextrose (Dextrose 50%) 25 ml STAT PRN IV Hypoglycemia 01/20/18 18:54 02/19/18 18:53 Dextrose (Dextrose 50%) 50 ml STAT PRN IV Hypoglycemia 01/20/18 18:55 02/19/18 18:54 Docusate Sodium (Colace) 100 mg THREE TIMES A DAY ORAL 01/21/18 09:00 02/20/18 08:59 01/22/18 08:38 Epoetin Evaristo (Procrit (for ESRD on dialysis)) 10,000 units SUN-SUN-SUN SUBQ 01/21/18 21:00 02/17/18 20:59 01/21/18 21:00 Fish Oil (Fish Oil) 1,000 mg BID ORAL 01/21/18 09:00 02/20/18 08:59 01/22/18 08:39 Folic Acid (Folate) 2 mg DAILY ORAL 01/21/18 09:00 02/20/18 08:59 01/22/18 08:38 Hydralazine HCl (Apresoline) 25 mg Q4H PRN ORAL bp over 160 syst 01/20/18 18:54 02/16/18 18:53 Ondansetron HCl (Zofran) 4 mg Q6H PRN IVP Nausea & Vomiting 01/20/18 18:54 02/16/18 18:53 Pantoprazole (Protonix) 40 mg DAILY ORAL 01/21/18 09:00 02/20/18 08:59 01/22/18 08:38 Polyethylene Glycol (Miralax) 17 gm DAILYPRN PRN ORAL Constipation 01/20/18 18:54 02/19/18 18:53 Sevelamer Carbonate (Renvela) 2,400 mg THREE TIMES A DAY ORAL 01/21/18 09:00 02/20/18 08:59 01/22/18 08:40 Sodium Chloride 1,000 ml @ 0 mls/hr Q0M IV 01/20/18 18:53 02/16/18 18:52 Temazepam (Restoril) 15 mg HSPRN PRN ORAL Insomnia 01/20/18 21:00 01/27/18 20:59 Porter Mckeon MD Jan 22, 2018 11:44
[2018-01-22 12:00] VITALS: BP 141/79
[2018-01-22 15:47] VITALS: BP 123/72
[2018-01-22 20:00] VITALS: BP 148/79
[2018-01-23 04:00] VITALS: BP 166/94
[2018-01-23 08:00] VITALS: BP 148/90
--- NOTE | 2018-01-23 08:49 | Nephrology Progress Note ---
Assessment/Plan Problem List: (1) ESRD (end stage renal disease) (2) Hypertension (3) Clotted dialysis access (4) Anemia in CKD (chronic kidney disease) Assessment ESRD DM HTN now controlled Morbid obesity clotted left chest cath Plan Plan: refusing blood work today transfused up dose Renvela PO folic acid Change cath by radiologist, done yesterday- dialysed 01/18 BP and BS check discussed with RN next HD 01/21 Patient wished change her dialysis center Hepatitis panel ordered DC planning Subjective ROS Limited/Unobtainable: No Objective Objective Last 24 Hour Vital Signs Date Time Temp Pulse Resp B/P (MAP) Pulse Ox O2 Delivery O2 Flow Rate FiO2 01/23/18 04:00 98.0 73 20 166/94 (118) 98 98.0 01/22/18 21:00 Room Air 01/22/18 20:00 98.2 90 20 148/79 (102) 96 98.2 01/22/18 19:22 80 18 Room Air 21 01/22/18 15:47 98.4 82 20 123/72 (89) 98 98.4 01/22/18 12:00 98.3 77 20 141/79 (99) 99 98.3 01/22/18 09:00 Room Air Intake and Output 01/22/18 01/23/18 19:00 07:00 Intake Total 480 ml 240 ml Balance 480 ml 240 ml Intake Oral 480 ml 240 ml # Voids 1 # Bowel Movements 1 1 Laboratory Tests 01/22/18 09:45: White Blood Count 8.0, Red Blood Count 3.20L, Hemoglobin 9.1L, Hematocrit 28.8L , Mean Corpuscular Volume 90, Mean Corpuscular Hemoglobin 28.5, Mean Corpuscular Hemoglobin Concent 31.7L, Red Cell Distribution Width 15.5H, Platelet Count 176, Mean Platelet Volume 6.9, Neutrophils (%) (Auto) 71.2, Lymphocytes (%) (Auto) 19.2L, Monocytes (%) (Auto) 5.8, Eosinophils (%) (Auto) 2.7, Basophils (%) (Auto) 1.3, Sodium Level 142, Potassium Level 3.8, Chloride Level 104, Carbon Dioxide Level 27, Anion Gap 11, Blood Urea Nitrogen 57H, Creatinine 8.8H, Estimat Glomerular Filtration Rate 5.8, Glucose Level 133H, Calcium Level 8.7 Height (Feet): 5 Height (Inches): 2.00 Weight (Pounds): 312 General Appearance: no apparent distress Objective no change Thompson Gresham MD Jan 23, 2018 08:49
[2018-01-23] MEDS: Docusate 100mg cap ORAL SCH ×3 (09:00→18:00)
[2018-01-23] MEDS: Atenolol 25mg tab ORAL SCH (09:00)
--- NOTE | 2018-01-23 11:17 | Consultation ---
History of Present Illness General Date patient seen: Jan 23, 2018 Chief Complaint: General Complaint Reason for Consultation: Eye pain Present Illness HPI Ms Rain is a 47 yo female with who presented to the ED on 01/17/18 with weakness after missing HD. She reported no other problems at that time. No SOB, CP, N/V/ D or Fever. Today she reports that she wants someone to look at her eye. The eye is sensitive to light painful and has a burning sensation and irritated feeling. She says that she has had eye problems stemming from DM in the past that resolved with diet control. She had retinal issue and cataracts. She says that she had had decreased vision for the last 3 years. The problems worsened in Dec and then got better until about 2 week ago when that got worse again. She says that she cant see out of the right eye and only dim colors from the right. She also reports that she has had increased pressure in the left eye. Today she reports some clear drainage from the right eye. ID consulted for eye infection. PMHx Hypertension Weakness ESRD on HD Anemia Morbid obesity Glaucoma? Migraine headaches PSHx Shunt. SocHx Active smoker Denies EtOH and Drug use FamHx Noncontributory. Allergies: Coded Allergies: HEPARIN (Verified Allergy, Unknown, 01/17/18) negative reaction with eyes Medication History Scheduled Atenolol* (Tenormin*), 25 MG ORAL DAILY, (Reported) Clonidine Hcl* (Catapres*), 0.3 MG ORAL Q8HR, (Reported) Patient History Healthcare decision maker SELF Resuscitation status Full Code Advanced Directive on File Review of Systems All Other Systems: negative except mentioned in HPI Physical Exam Last 24 Hour Vital Signs Date Time Temp Pulse Resp B/P (MAP) Pulse Ox O2 Delivery O2 Flow Rate FiO2 01/23/18 09:41 81 18 Room Air 21 01/23/18 09:00 71 148/90 01/23/18 09:00 71 148/90 01/23/18 04:00 98.0 73 20 166/94 (118) 98 98.0 01/22/18 21:00 Room Air 01/22/18 20:00 98.2 90 20 148/79 (102) 96 98.2 01/22/18 19:22 80 18 Room Air 21 01/22/18 15:47 98.4 82 20 123/72 (89) 98 98.4 01/22/18 12:00 98.3 77 20 141/79 (99) 99 98.3 Intake and Output 01/22/18 01/23/18 19:00 07:00 Intake Total 480 ml 240 ml Balance 480 ml 240 ml Intake Oral 480 ml 240 ml # Voids 1 # Bowel Movements 1 1 Height (Feet): 5 Height (Inches): 2.00 Weight (Pounds): 312 Medications Current Medications Medications (Trade) Dose Ordered Sig/Everardo Route PRN Reason Start Time Stop Time Status Last Admin Dose Admin Acetaminophen (Tylenol) 650 mg Q4H PRN ORAL Fever 01/20/18 18:53 02/16/18 18:52 01/21/18 18:40 Amlodipine Besylate (Norvasc) 10 mg DAILY ORAL 01/21/18 09:00 02/20/18 08:59 Atenolol (Tenormin) 25 mg DAILY ORAL 01/21/18 09:00 02/20/18 08:59 Docusate Sodium (Colace) 100 mg THREE TIMES A DAY ORAL 01/21/18 09:00 02/20/18 08:59 01/22/18 08:38 Epoetin Evairsto (Procrit (for ESRD on dialysis)) 10,000 units SUN-SUN-SUN SUBQ 01/21/18 21:00 02/17/18 20:59 01/21/18 21:00 Fish Oil (Fish Oil) 1,000 mg BID ORAL 01/21/18 09:00 02/20/18 08:59 01/22/18 17:58 Folic Acid (Folate) 2 mg DAILY ORAL 01/21/18 09:00 02/20/18 08:59 01/23/18 09:15 Hydralazine HCl (Apresoline) 25 mg Q4H PRN ORAL bp over 160 syst 01/20/18 18:54 02/16/18 18:53 Ondansetron HCl (Zofran) 4 mg Q6H PRN IVP Nausea & Vomiting 01/20/18 18:54 02/16/18 18:53 Pantoprazole (Protonix) 40 mg DAILY ORAL 01/21/18 09:00 02/20/18 08:59 01/22/18 08:38 Polyethylene Glycol (Miralax) 17 gm DAILYPRN PRN ORAL Constipation 01/20/18 18:54 02/19/18 18:53 Sevelamer Carbonate (Renvela) 2,400 mg THREE TIMES A DAY ORAL 01/21/18 09:00 02/20/18 08:59 01/23/18 09:15 Sodium Chloride 1,000 ml @ 0 mls/hr Q0M IV 01/20/18 18:53 02/16/18 18:52 Temazepam (Restoril) 15 mg HSPRN PRN ORAL Insomnia 01/20/18 21:00 01/27/18 20:59 Objective Narrative Gen: NAD, well appearing, alert HEENT: NCAT, MMM, No Oral lesion, no scleral icterus EYE: Right eye no periorbital swelling, No scleral injection, Sensitive to light can count fingers at about 1 foot but cant see past that. Left eye mild periorbital swelling. some injection (mild) cataracts seem to obscuring the lens, Sensitive to light. Says she cant seen anything other then light form that eye. There is some tearing but no purulent discharge. NECK: full range of motion, supple, no meningismus, No LAD, No JVD LUNGS: CTAB, No W/C, No Accessory muscle use CARDS: RRR, S1, S2, No M/R/G ABD: Soft, NT, ND, No R/G, + BS, No HSM, No Masses : Deferred Ext: C/C/E, Pulses 2+ B/L (DP, Rad) NEURO: A/O x 4, Strength and Sensation Grossly intact PSYCH: mood/affect normal SKIN: warm/dry, No rashes, Assessment/Plan Assessment/Plan 47 yo female with who presented to the ED on 01/17/18 with weakness after missing HD. Acute on Chronic Eye Pain - No sign of bacterial infection - Could be viral but need to r/o acute glaucoma and inner eye pathologies given vision loss - Needs urgent ophthalmology evaluation Hypertension Weakness ESRD on HD Anemia Morbid obesity. Plan: - Urgent Ophthalmology Consult - Continue to monitor eye discomfort - Saline drops if needed - Supportive care. Communicated recommendations to Dr. Faulkner Thank you for this consult. We will continue to follow the patient during this hospitalization. Lauro Dean MD Jan 23, 2018 11:17
[2018-01-23 12:00] VITALS: BP 152/85
--- NOTE | 2018-01-23 12:54 | Pulmonology Progress Note ---
Assessment/Plan Problems: (1) Pulmonary edema (2) Missed dialysis (3) ESRD (end stage renal disease) (4) Clotted dialysis access (5) Hypertension Assessment/Plan no new complains BP still elevated, down to 130 HD as per renal f/u labs symptomatic treatment check electrolytes med/surg dc planing Subjective ROS Limited/Unobtainable: No Constitutional: Reports: no symptoms HEENT: Repors: no symptoms Respiratory: Reports: no symptoms Allergies: Coded Allergies: HEPARIN (Verified Allergy, Unknown, 01/17/18) negative reaction with eyes Objective Last 24 Hour Vital Signs Date Time Temp Pulse Resp B/P (MAP) Pulse Ox O2 Delivery O2 Flow Rate FiO2 01/23/18 09:41 81 18 Room Air 21 01/23/18 09:00 71 148/90 01/23/18 09:00 71 148/90 01/23/18 04:00 98.0 73 20 166/94 (118) 98 98.0 01/22/18 21:00 Room Air 01/22/18 20:00 98.2 90 20 148/79 (102) 96 98.2 01/22/18 19:22 80 18 Room Air 21 01/22/18 15:47 98.4 82 20 123/72 (89) 98 98.4 Intake and Output 01/22/18 01/23/18 19:00 07:00 Intake Total 480 ml 240 ml Balance 480 ml 240 ml Intake Oral 480 ml 240 ml # Voids 1 # Bowel Movements 1 1 Objective General Appearance: WD/WN HEENT: normocephalic, atraumatic Respiratory/Chest: chest wall non-tender, lungs clear Breasts: no masses Cardiovascular: normal peripheral pulses, normal rate Abdomen: normal bowel sounds, soft, non tender Genitourinary: normal external genitalia Extremities: no clubbing Skin: no rash 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 normal Lymphatic: no neck adenopathy Current Medications Medications (Trade) Dose Ordered Sig/Everardo Route PRN Reason Start Time Stop Time Status Last Admin Dose Admin Acetaminophen (Tylenol) 650 mg Q4H PRN ORAL Fever 01/20/18 18:53 02/16/18 18:52 01/21/18 18:40 Amlodipine Besylate (Norvasc) 10 mg DAILY ORAL 01/21/18 09:00 02/20/18 08:59 Atenolol (Tenormin) 25 mg DAILY ORAL 01/21/18 09:00 02/20/18 08:59 Docusate Sodium (Colace) 100 mg THREE TIMES A DAY ORAL 01/21/18 09:00 02/20/18 08:59 01/23/18 12:44 Epoetin Evaristo (Procrit (for ESRD on dialysis)) 10,000 units SUN-SUN-SUN SUBQ 01/21/18 21:00 02/17/18 20:59 01/21/18 21:00 Fish Oil (Fish Oil) 1,000 mg BID ORAL 01/21/18 09:00 02/20/18 08:59 01/22/18 17:58 Folic Acid (Folate) 2 mg DAILY ORAL 01/21/18 09:00 02/20/18 08:59 01/23/18 09:15 Hydralazine HCl (Apresoline) 25 mg Q4H PRN ORAL bp over 160 syst 01/20/18 18:54 02/16/18 18:53 Ondansetron HCl (Zofran) 4 mg Q6H PRN IVP Nausea & Vomiting 01/20/18 18:54 02/16/18 18:53 Pantoprazole (Protonix) 40 mg DAILY ORAL 01/21/18 09:00 02/20/18 08:59 01/22/18 08:38 Polyethylene Glycol (Miralax) 17 gm DAILYPRN PRN ORAL Constipation 01/20/18 18:54 02/19/18 18:53 Sevelamer Carbonate (Renvela) 2,400 mg THREE TIMES A DAY ORAL 01/21/18 09:00 02/20/18 08:59 01/23/18 12:44 Sodium Chloride 1,000 ml @ 0 mls/hr Q0M IV 01/20/18 18:53 02/16/18 18:52 Temazepam (Restoril) 15 mg HSPRN PRN ORAL Insomnia 01/20/18 21:00 01/27/18 20:59 Porter Mckeon MD Jan 23, 2018 12:54
--- NOTE | 2018-01-23 13:53 | Cardiac Electrophysiology PN ---
Assessment/Plan Assessment/Plan 1. Accelerated hypertension. On Norvasc 10 mg daily, Atenolol 25 mg daily and prn hydralazine and HD. 2. First-degree AV block. No Syncope 3. Clotted dialysis access. Had dialysis via the new dialysis access line. FU Dr Mp HELMS RN at bedside Subjective Subjective No CP or SOB. Awaiting HD today prior to discharge Objective Last 24 Hour Vital Signs Date Time Temp Pulse Resp B/P (MAP) Pulse Ox O2 Delivery O2 Flow Rate FiO2 01/23/18 09:41 81 18 Room Air 21 01/23/18 09:00 71 148/90 01/23/18 09:00 71 148/90 01/23/18 08:00 99.0 71 20 148/90 (109) 98 99.0 01/23/18 04:00 98.0 73 20 166/94 (118) 98 98.0 01/22/18 21:00 Room Air 01/22/18 20:00 98.2 90 20 148/79 (102) 96 98.2 01/22/18 19:22 80 18 Room Air 21 01/22/18 15:47 98.4 82 20 123/72 (89) 98 98.4 Intake and Output 01/22/18 01/23/18 19:00 07:00 Intake Total 480 ml 240 ml Balance 480 ml 240 ml Intake Oral 480 ml 240 ml # Voids 1 # Bowel Movements 1 1 Objective HEAD AND NECK: No JVD. LUNGS: Clear. CHEST: New dialysis access in the left subclavian. CARDIOVASCULAR: Regular. S1 and S2 with no gallop or murmur. ABDOMEN: Morbidly obese. EXTREMITIES: 1+ pitting edema. Frank Saab MD Jan 23, 2018 13:53
--- NOTE | 2018-01-23 14:13 | General Progress Note ---
Assessment/Plan Problem List: (1) Weak ICD Codes: R53.1 - Weakness SNOMED: 62492481 (2) Anemia ICD Codes: D64.9 - Anemia, unspecified SNOMED: 747791375 (3) ESRD (end stage renal disease) ICD Codes: N18.6 - End stage renal disease SNOMED: 84811383 (4) Hypertension ICD Codes: I10 - Essential (primary) hypertension SNOMED: 58313392 (5) Missed dialysis SNOMED: 223396236 (6) Clotted dialysis access ICD Codes: T82.49XA - Other complication of vascular dialysis catheter, initial encounter SNOMED: 96566526 Status: stable, progressing Assessment/Plan ot pt diet dialysis transfuse cbc bmp am ophtal eval dc plan w hh Subjective Constitutional: Reports: weakness Allergies: Coded Allergies: HEPARIN (Verified Allergy, Unknown, 01/17/18) negative reaction with eyes All Systems: reviewed and negative except above Subjective calm sleepy sl eye pain Objective Last 24 Hour Vital Signs Date Time Temp Pulse Resp B/P (MAP) Pulse Ox O2 Delivery O2 Flow Rate FiO2 01/23/18 12:00 98.8 80 20 152/85 (107) 95 98.8 01/23/18 09:41 81 18 Room Air 21 01/23/18 09:00 Room Air 01/23/18 09:00 71 148/90 01/23/18 09:00 71 148/90 01/23/18 08:00 99.0 71 20 148/90 (109) 98 99.0 01/23/18 04:00 98.0 73 20 166/94 (118) 98 98.0 01/22/18 21:00 Room Air 01/22/18 20:00 98.2 90 20 148/79 (102) 96 98.2 01/22/18 19:22 80 18 Room Air 21 01/22/18 15:47 98.4 82 20 123/72 (89) 98 98.4 Intake and Output 01/22/18 01/23/18 19:00 07:00 Intake Total 480 ml 240 ml Balance 480 ml 240 ml Intake Oral 480 ml 240 ml # Voids 1 # Bowel Movements 1 1 Height (Feet): 5 Height (Inches): 2.00 Weight (Pounds): 312 General Appearance: lethargic EENT: normal ENT inspection Neck: normal alignment Cardiovascular: normal peripheral pulses, normal rate, regular rhythm Respiratory/Chest: chest wall non-tender, lungs clear, normal breath sounds Abdomen: normal bowel sounds, non tender, soft Extremities: normal inspection Edema: no edema noted Arm (L), no edema noted Arm (R), no edema noted Leg (L), no edema noted Leg (R), no edema noted Pedal (L), no edema noted Pedal (R), no edema noted Generalized Neurologic: responsive, motor weakness Skin: normal pigmentation, warm/dry David Faulkner DO Jan 23, 2018 14:13
--- NOTE | 2018-01-23 14:26 | General Surgery Progress Note ---
General Surgery-Progress Note Subjective Symptoms: improved, pain absent, tolerating diet, passing flatus Objective Last 24 Hour Vital Signs Date Time Temp Pulse Resp B/P (MAP) Pulse Ox O2 Delivery O2 Flow Rate FiO2 01/23/18 12:00 98.8 80 20 152/85 (107) 95 98.8 01/23/18 09:41 81 18 Room Air 21 01/23/18 09:00 Room Air 01/23/18 09:00 71 148/90 01/23/18 09:00 71 148/90 01/23/18 08:00 99.0 71 20 148/90 (109) 98 99.0 01/23/18 04:00 98.0 73 20 166/94 (118) 98 98.0 01/22/18 21:00 Room Air 01/22/18 20:00 98.2 90 20 148/79 (102) 96 98.2 01/22/18 19:22 80 18 Room Air 21 01/22/18 15:47 98.4 82 20 123/72 (89) 98 98.4 I&O Intake and Output 01/22/18 01/23/18 19:00 07:00 Intake Total 480 ml 240 ml Balance 480 ml 240 ml Intake Oral 480 ml 240 ml # Voids 1 # Bowel Movements 1 1 Dressing: dry Wound: clean Drains: none Cardiovascular: RSR Respiratory: clear Abdomen: soft, flat Extremities: no edema, no tenderness Plan Problems: (1) ESRD (end stage renal disease) (2) Anemia Assessment & Plan: anemia requiring urgent transfusion. hemoglobin 6 today and PRBC ordered but cannot be transfused because of lack of venous access. multiple attempts made by RN team but unable. discussed central venous access with patient. given history, needs, and medical condition would optimally reserve central access for emergency. using ultrasound guidance extremities evaluated and no good peripheral vein identified. was able to identify left external jugular EJ vein. on second attempt was able to place functional 18g left EJ line. okay to being transfusions please keep line patent and ensure does not get clotted. TKO if no meds or blood products needed. will monitor. unfortunately if line fails will likely require central venous access given limited peripheral access. line functional. improving HD today d/c after then d/c home as planned. thank you. Favio Siu Jan 23, 2018 14:26
--- NOTE | 2018-01-23 14:50 | Consultation ---
Consult Note Consult Note Ophthalmology Inpatient Consultation Referring Physician: David Faulkner Reason for Consultation: eye pain History of the present illness: The patient is a 47-year-old woman with a history of glaucoma and diabetic eye disease. She is in the hospital for management of renal failure. For the past 2 weeks she has noted pain OU as well as tearing OD>OS. She has been followed in the past by Dr. Spencer for diabetic retinopathy. She notes that she had been on glaucoma drops in the past but is no longer taking them. She has no light perception in her right eye which has been the case for a long time and also has poor vision in the left eye. She was seen at an outside hospital recently with elevated eye pressure but has not had follow-up. She denies any significant change in her vision since she was admitted to [facility]. Past medical Hx: glaucoma diabetes ESRD HTN Current Medications Medications (Trade) Dose Ordered Sig/Everardo Route PRN Reason Start Time Stop Time Status Last Admin Dose Admin Acetaminophen (Tylenol) 650 mg Q4H PRN ORAL Fever 01/20/18 18:53 02/16/18 18:52 01/21/18 18:40 Amlodipine Besylate (Norvasc) 10 mg DAILY ORAL 01/21/18 09:00 02/20/18 08:59 Atenolol (Tenormin) 25 mg DAILY ORAL 01/21/18 09:00 02/20/18 08:59 Docusate Sodium (Colace) 100 mg THREE TIMES A DAY ORAL 01/21/18 09:00 02/20/18 08:59 01/23/18 12:44 Epoetin Evaristo (Procrit (for ESRD on dialysis)) 10,000 units SUN-SUN-SUN SUBQ 01/21/18 21:00 02/17/18 20:59 01/21/18 21:00 Fish Oil (Fish Oil) 1,000 mg BID ORAL 01/21/18 09:00 02/20/18 08:59 01/22/18 17:58 Folic Acid (Folate) 2 mg DAILY ORAL 01/21/18 09:00 02/20/18 08:59 01/23/18 09:15 Hydralazine HCl (Apresoline) 25 mg Q4H PRN ORAL bp over 160 syst 01/20/18 18:54 02/16/18 18:53 Ondansetron HCl (Zofran) 4 mg Q6H PRN IVP Nausea & Vomiting 01/20/18 18:54 02/16/18 18:53 Pantoprazole (Protonix) 40 mg DAILY ORAL 01/21/18 09:00 02/20/18 08:59 01/22/18 08:38 Polyethylene Glycol (Miralax) 17 gm DAILYPRN PRN ORAL Constipation 01/20/18 18:54 02/19/18 18:53 Sevelamer Carbonate (Renvela) 2,400 mg THREE TIMES A DAY ORAL 01/21/18 09:00 02/20/18 08:59 01/23/18 12:44 Sodium Chloride 1,000 ml @ 0 mls/hr Q0M IV 01/20/18 18:53 02/16/18 18:52 Temazepam (Restoril) 15 mg HSPRN PRN ORAL Insomnia 01/20/18 21:00 01/27/18 20:59 Allergies: Heparin Family History: non-contributory Social History: no tobacco use Review of Systems: General: no fever HEENT: see HPI Cardiac: no chest pain Respiratory: no shortness of breath GI: no nausea : ESRD on HD MS: no joint pains Derm: no rashes Psychiatric: no depression Neurologic: no numbness, no weakness Heme: no easy bruising Examination: Mini-mental status examination revealed the patient to be awake, alert and oriented to person, place and time with appropriate mood and affect. Visual Acuity at near without correction: OD: No light perception OS: 20/800 Intraocular pressure (schiotz): OD: ~26 mmHg OS: ~26 mmHg Pupils: OD miotic and fixed, OS round and reactive to light Extra-ocular motility: full OU Confrontational visual gomez: unable OD, constricted OS Anterior Segments: External: normal lids and orbits OU Conjunctivae: white and quiet OU Cornea: shallow tear lakes, no abrasions OU Anterior Chambers: Deep and Quiet OU Irides: 360 posterior synechiae OD with rubeosis, round and flat OS Lenses: mature cataract OD, nuclear sclerosis OS Dilated Fundus Examination (phen 2.5%, trop 1%): Vitreous: no view OD, limited view OS Optic Nerves: no view OD, limited view OS Vessels: no view OD, limited view OS Maculae: no view OD, extensive scarring Periphery: no view OD, extensive scarring . Assessment/Plan Impression: 1. Neovascular glaucoma OD 2. Elevated intraocular pressure OS 3. Proliferative diabetic retinopathy OU 3. Dry Eyes OU Assessment and Plan: The patient is a 47 year-old woman with DM and ESRD. She has a history of proliferative diabetic retinopathy OU and has been managed in the past by Dr. Fina Spencer. She was recently seen at an outside hospital with severely elevated intraocular pressures. She has rubeosis in the right eye with elevated IOP OU. I stressed the importance of outpatient follow-up for management of her eye disease and the risk of further vision loss without treatment. - will start ocular antihypertensives to lower IOP - will start artificial tears for comfort given dryness - f/u as soon as possible with her eye doctor upon discharge. Thank you very much for this consultation Garland Quintana M.D. [phone] Garland Quintana MD Jan 23, 2018 14:50
[2018-01-23 16:00] VITALS: BP 155/98
--- NOTE | 2018-01-23 16:17 | Diagnostic Imaging Report ---
Indications: Needs long-term dialysis access Technique: Total sterile technique, including sterile probe cover and sterile gel, sterile gloves, hand hygiene, hat, mask,, sterile gown, large sterile drape, and preparation with 2% chlorhexidine utilized. Local anesthesia with 1% lidocaine. Through pre-existing malfunctioning dialysis catheter, a guidewire was inserted. The pre-existing catheter was removed,, and replaced with a 32 cm palindrome catheter (longer than the previous catheter, tip position of which was suboptimal, in the superior vena cava). Digital radiograph documents satisfactory catheter tip position in the high right atrium, no kinking at the insertion site. Both catheter ports aspirated and flushed. Catheter was fixed to the skin. Patient tolerated procedure well without immediate complication. Total fluoroscopy time 2.5 minutes. Total dose area product 240 dGycm2 Total number of images-2 Comparison: None. Findings: Completion radiograph documents satisfactory position and course of the catheter, catheter tip at the high right atrium. Impression: Successful replacement of of malfunctioning left jugular tunneled dialysis catheter, as described above
[2018-01-23] MEDS: Artificial Tears 1.4% Op Soln BOTH EYES SCH ×2 (18:28→20:00)
[2018-01-23] MEDS: Cosopt Opth Soln 10 mL Btl BOTH EYES SCH (18:29)
[2018-01-23 18:30] VITALS: BP 146/86
--- NOTE | 2018-01-23 19:15 | Progress Note ---
DATE: 01/22/2018 TIME: 2 p.m. SUBJECTIVE: The patient was seen yesterday 01/22/2018 about the same time. The patient was calm in bed. No complaint. No chest pain. No chest pain. No nausea, vomiting, or diarrhea. OBJECTIVE: VITAL SIGNS: Temperature was 98 degrees, pulse 82, respirations 20, blood pressure 123/72. CARDIOVASCULAR: No murmur. LUNGS: Distant and clear. ABDOMEN: Bowel sounds positive. Nontender. Nondistended. EXTREMITIES: No cyanosis or edema. LABORATORY AND DIAGNOSTIC DATA: Hemoglobin and hematocrit 9.1/28. BMP shows a BUN and creatinine 57/8.8, and glucose 133. MEDICATIONS: Procrit, Norvasc, Tenormin, Colace, pantoprazole, sevelamer, temazepam, hydralazine and Zofran. ASSESSMENT: 1. Weakness. 2. Hypertension. 3. ESRD, missing dialysis, cath. 4. Anemia. 5. Morbid obese. 6. Eye pain. PLAN: 1. Continue previous medications. 2. Blood pressure and pain control. 3. Dietary followup. 4. Dialysis p.r.n. 5. We will continue to follow the patient. David Faulkner D.O. DR: ISIDRO JOB#: [id number] CC:
[2018-01-23 20:00] VITALS: BP 129/73
[2018-01-23] MEDS: Epogen (for ESRD on dialysis) SUBQ SCH (20:00)
[2018-01-24 06:46] LABS: BASOPHILS % (AUTO) 1.6 % (0.0-2.0); EOSINOPHILS % (AUTO) 3.9 % (0.0-3.0); HEMATOCRIT 26.4 % (37.0-47.0); HEMOGLOBIN 8.4 G/DL (12.0-16.0); LYMPHOCYTES % (AUTO) 28.7 % (20.0-45.0); MEAN CORPUSCULAR VOLUME 91 FL (80-99); MONOCYTES % (AUTO) 7.7 % (1.0-10.0); NEUTROPHILS % (AUTO) 58.1 % (45.0-75.0); PLATELET COUNT 157 K/UL (150-450); RED BLOOD COUNT 2.91 M/UL (4.20-5.40); RED CELL DISTRIBUTION WIDTH 15.6 % (11.6-14.8); WHITE BLOOD COUNT 7.1 K/UL (4.8-10.8)
[2018-01-24 07:28] LABS: ANION GAP 10 mmol/L (5-15); BLOOD UREA NITROGEN 62 mg/dL (7-18); CALCIUM 9.1 MG/DL (8.5-10.1); CARBON DIOXIDE 26 MMOL/L (21-32); CHLORIDE 104 MMOL/L (98-107); CREATININE 7.9 MG/DL (0.55-1.30); POTASSIUM 4.1 MMOL/L (3.5-5.1); SODIUM 140 MMOL/L (136-145)
[2018-01-24 08:00] VITALS: BP 143/90
[2018-01-24] MEDS: Docusate 100mg cap ORAL SCH ×2 (08:41→12:45)
[2018-01-24] MEDS: Artificial Tears 1.4% Op Soln BOTH EYES SCH ×2 (08:45→12:46)
[2018-01-24] MEDS: Cosopt Opth Soln 10 mL Btl BOTH EYES SCH (08:45)
[2018-01-24] MEDS: Atenolol 25mg tab ORAL SCH (08:49)
--- NOTE | 2018-01-24 09:07 | Infectious Diseases Prog Note ---
Assessment/Plan Assessment/Plan 47 yo female with who presented to the ED on 01/17/18 with weakness after missing HD. Acute on Chronic Eye Pain - Possible Glaucoma - No sign of bacterial infection - Seen by ophtho Needs out patient follow up Hypertension Weakness ESRD on HD Anemia Morbid obesity. Plan: - Continue to monitor eye discomfort - Symptomatic Tx per ophthalmology - Supportive care. We will continue to follow the patient during this hospitalization. Subjective Allergies: Coded Allergies: HEPARIN (Verified Allergy, Unknown, 01/17/18) negative reaction with eyes Subjective Patient still with some eye pain Aferbile Objective Vital Signs Last 24 Hour Vital Signs Date Time Temp Pulse Resp B/P (MAP) Pulse Ox O2 Delivery O2 Flow Rate FiO2 01/24/18 08:49 70 149/90 01/24/18 08:48 70 149/90 01/24/18 08:06 71 18 Room Air 21 01/24/18 08:00 97.7 70 20 143/90 (107) 100 97.7 01/23/18 21:00 Room Air 01/23/18 20:00 98.3 99 18 129/73 (91) 97 98.3 01/23/18 19:06 78 18 Room Air 21 01/23/18 18:30 98.6 84 20 146/86 (106) 100 98.6 01/23/18 17:52 Room Air 21 01/23/18 16:00 97.1 83 19 155/98 (117) 97 97.1 01/23/18 13:25 Room Air 21 01/23/18 12:00 98.8 80 20 152/85 (107) 95 98.8 01/23/18 09:41 81 18 Room Air 21 Height (Feet): 5 Height (Inches): 2.00 Weight (Pounds): 310 Objective Gen: NAD, well appearing, alert HEENT: NCAT, MMM, no scleral icterus EYE: Right eye no periorbital swelling, No scleral injection, Left eye mild periorbital swelling. Some injection (mild) cataracts seem to obscuring the lens, Sensitive to light. LUNGS: CTAB, No W CARDS: RRR, S1, S2, No M/R/G ABD: Soft, NT, ND, No R/G, + BS Laboratory Tests Test 01/24/18 05:34 White Blood Count 7.1 K/UL (4.8-10.8) Red Blood Count 2.91 M/UL (4.20-5.40) L Hemoglobin 8.4 G/DL (12.0-16.0) L Hematocrit 26.4 % (37.0-47.0) L Mean Corpuscular Volume 91 FL (80-99) Mean Corpuscular Hemoglobin 28.8 PG (27.0-31.0) Mean Corpuscular Hemoglobin Concent 31.8 G/DL (32.0-36.0) L Red Cell Distribution Width 15.6 % (11.6-14.8) H Platelet Count 157 K/UL (150-450) Mean Platelet Volume 7.0 FL (6.5-10.1) Neutrophils (%) (Auto) 58.1 % (45.0-75.0) Lymphocytes (%) (Auto) 28.7 % (20.0-45.0) Monocytes (%) (Auto) 7.7 % (1.0-10.0) Eosinophils (%) (Auto) 3.9 % (0.0-3.0) H Basophils (%) (Auto) 1.6 % (0.0-2.0) Sodium Level 140 MMOL/L (136-145) Potassium Level 4.1 MMOL/L (3.5-5.1) Chloride Level 104 MMOL/L (98-107) Carbon Dioxide Level 26 MMOL/L (21-32) Anion Gap 10 mmol/L (5-15) Blood Urea Nitrogen 62 mg/dL (7-18) H Creatinine 7.9 MG/DL (0.55-1.30) H Estimat Glomerular Filtration Rate 6.7 mL/min (>60) Glucose Level 83 MG/DL (74-106) Calcium Level 9.1 MG/DL (8.5-10.1) Current Medications Medications (Trade) Dose Ordered Sig/Everardo Route PRN Reason Start Time Stop Time Status Last Admin Dose Admin Acetaminophen (Tylenol) 650 mg Q4H PRN ORAL Fever 01/20/18 18:53 02/16/18 18:52 01/23/18 18:28 Amlodipine Besylate (Norvasc) 10 mg DAILY ORAL 01/21/18 09:00 02/20/18 08:59 Artificial Tears (Akwa-Tears) 2 drop QID BOTH EYES 01/23/18 18:00 02/22/18 17:59 01/24/18 08:45 Atenolol (Tenormin) 25 mg DAILY ORAL 01/21/18 09:00 02/20/18 08:59 Docusate Sodium (Colace) 100 mg THREE TIMES A DAY ORAL 01/21/18 09:00 02/20/18 08:59 01/24/18 08:41 Dorzolamide/ Timolol (Cosopt) 1 drop TWICE A DAY BOTH EYES 01/23/18 18:00 02/22/18 17:59 01/24/18 08:45 Epoetin Evaristo (Procrit (for ESRD on dialysis)) 10,000 units SUN-SUN-SUN SUBQ 01/21/18 21:00 02/17/18 20:59 01/23/18 20:00 Fish Oil (Fish Oil) 1,000 mg BID ORAL 01/21/18 09:00 02/20/18 08:59 01/24/18 08:39 Folic Acid (Folate) 2 mg DAILY ORAL 01/21/18 09:00 02/20/18 08:59 01/24/18 08:41 Hydralazine HCl (Apresoline) 25 mg Q4H PRN ORAL bp over 160 syst 01/20/18 18:54 02/16/18 18:53 Ondansetron HCl (Zofran) 4 mg Q6H PRN IVP Nausea & Vomiting 01/20/18 18:54 02/16/18 18:53 Pantoprazole (Protonix) 40 mg DAILY ORAL 01/21/18 09:00 02/20/18 08:59 01/22/18 08:38 Polyethylene Glycol (Miralax) 17 gm DAILYPRN PRN ORAL Constipation 01/20/18 18:54 02/19/18 18:53 Sevelamer Carbonate (Renvela) 2,400 mg THREE TIMES A DAY ORAL 01/21/18 09:00 02/20/18 08:59 01/24/18 08:40 Sodium Chloride 1,000 ml @ 0 mls/hr Q0M IV 01/20/18 18:53 02/16/18 18:52 Temazepam (Restoril) 15 mg HSPRN PRN ORAL Insomnia 01/20/18 21:00 01/27/18 20:59 Lauro Dean MD Jan 24, 2018 09:07
--- NOTE | 2018-01-24 10:43 | General Surgery Progress Note ---
General Surgery-Progress Note Subjective Additional Comments doing well. no acute events. Objective Last 24 Hour Vital Signs Date Time Temp Pulse Resp B/P (MAP) Pulse Ox O2 Delivery O2 Flow Rate FiO2 01/24/18 09:13 Room Air 01/24/18 08:49 70 149/90 01/24/18 08:48 70 149/90 01/24/18 08:06 71 18 Room Air 21 01/24/18 08:00 97.7 70 20 143/90 (107) 100 97.7 01/23/18 21:00 Room Air 01/23/18 20:00 98.3 99 18 129/73 (91) 97 98.3 01/23/18 19:06 78 18 Room Air 21 01/23/18 18:30 98.6 84 20 146/86 (106) 100 98.6 01/23/18 17:52 Room Air 21 01/23/18 16:00 97.1 83 19 155/98 (117) 97 97.1 01/23/18 13:25 Room Air 21 01/23/18 12:00 98.8 80 20 152/85 (107) 95 98.8 I&O Intake and Output 01/23/18 01/24/18 19:00 07:00 Intake Total 700 ml 240 ml Output Total 0 ml Balance 700 ml 240 ml Intake Oral 700 ml 240 ml Output Stool Total 0 ml # Voids 4 1 Wound: other Drains: other Cardiovascular: RSR Respiratory: clear Abdomen: soft, flat, non-tender, present bowel sounds Extremities: edema, other Laboratory Tests Test 01/24/18 05:34 White Blood Count 7.1 K/UL (4.8-10.8) Red Blood Count 2.91 M/UL (4.20-5.40) L Hemoglobin 8.4 G/DL (12.0-16.0) L Hematocrit 26.4 % (37.0-47.0) L Mean Corpuscular Volume 91 FL (80-99) Mean Corpuscular Hemoglobin 28.8 PG (27.0-31.0) Mean Corpuscular Hemoglobin Concent 31.8 G/DL (32.0-36.0) L Red Cell Distribution Width 15.6 % (11.6-14.8) H Platelet Count 157 K/UL (150-450) Mean Platelet Volume 7.0 FL (6.5-10.1) Neutrophils (%) (Auto) 58.1 % (45.0-75.0) Lymphocytes (%) (Auto) 28.7 % (20.0-45.0) Monocytes (%) (Auto) 7.7 % (1.0-10.0) Eosinophils (%) (Auto) 3.9 % (0.0-3.0) H Basophils (%) (Auto) 1.6 % (0.0-2.0) Sodium Level 140 MMOL/L (136-145) Potassium Level 4.1 MMOL/L (3.5-5.1) Chloride Level 104 MMOL/L (98-107) Carbon Dioxide Level 26 MMOL/L (21-32) Anion Gap 10 mmol/L (5-15) Blood Urea Nitrogen 62 mg/dL (7-18) H Creatinine 7.9 MG/DL (0.55-1.30) H Estimat Glomerular Filtration Rate 6.7 mL/min (>60) Glucose Level 83 MG/DL (74-106) Calcium Level 9.1 MG/DL (8.5-10.1) Plan Problems: (1) ESRD (end stage renal disease) (2) Anemia Assessment & Plan: anemia requiring urgent transfusion. hemoglobin 6 today and PRBC ordered but cannot be transfused because of lack of venous access. multiple attempts made by RN team but unable. discussed central venous access with patient. given history, needs, and medical condition would optimally reserve central access for emergency. using ultrasound guidance extremities evaluated and no good peripheral vein identified. was able to identify left external jugular EJ vein. on second attempt was able to place functional 18g left EJ line. okay to being transfusions please keep line patent and ensure does not get clotted. TKO if no meds or blood products needed. will monitor. unfortunately if line fails will likely require central venous access given limited peripheral access. line functional. improving no surgical intervention needed at this time. okay to d/c from surgical standpoint thank you. Favio Siu Jan 24, 2018 10:43
--- NOTE | 2018-01-24 11:10 | Pulmonology Progress Note ---
Assessment/Plan Problems: (1) Pulmonary edema (2) Missed dialysis (3) ESRD (end stage renal disease) (4) Clotted dialysis access (5) Hypertension Assessment/Plan no new complains BP still elevated, down to 130 HD as per renal f/u labs symptomatic treatment check electrolytes med/surg dc planing Subjective ROS Limited/Unobtainable: No Constitutional: Reports: no symptoms HEENT: Repors: no symptoms Respiratory: Reports: no symptoms Allergies: Coded Allergies: HEPARIN (Verified Allergy, Unknown, 01/17/18) negative reaction with eyes Objective Last 24 Hour Vital Signs Date Time Temp Pulse Resp B/P (MAP) Pulse Ox O2 Delivery O2 Flow Rate FiO2 01/24/18 09:13 Room Air 01/24/18 08:49 70 149/90 01/24/18 08:48 70 149/90 01/24/18 08:06 71 18 Room Air 21 01/24/18 08:00 97.7 70 20 143/90 (107) 100 97.7 01/23/18 21:00 Room Air 01/23/18 20:00 98.3 99 18 129/73 (91) 97 98.3 01/23/18 19:06 78 18 Room Air 21 01/23/18 18:30 98.6 84 20 146/86 (106) 100 98.6 01/23/18 17:52 Room Air 21 01/23/18 16:00 97.1 83 19 155/98 (117) 97 97.1 01/23/18 13:25 Room Air 21 01/23/18 12:00 98.8 80 20 152/85 (107) 95 98.8 Intake and Output 01/23/18 01/24/18 19:00 07:00 Intake Total 700 ml 240 ml Output Total 0 ml Balance 700 ml 240 ml Intake Oral 700 ml 240 ml Output Stool Total 0 ml # Voids 4 1 Objective General Appearance: WD/WN HEENT: normocephalic, atraumatic Respiratory/Chest: chest wall non-tender, lungs clear Breasts: no masses Cardiovascular: normal peripheral pulses, normal rate Abdomen: normal bowel sounds, soft, non tender Genitourinary: normal external genitalia Extremities: no clubbing Skin: no rash Neurologic/Psychiatric: heat treat 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 II-XII grossly normal Lymphatic: no neck adenopathy Laboratory Tests 01/24/18 05:34: White Blood Count 7.1, Red Blood Count 2.91L, Hemoglobin 8.4L, Hematocrit 26.4L , Mean Corpuscular Volume 91, Mean Corpuscular Hemoglobin 28.8, Mean Corpuscular Hemoglobin Concent 31.8L, Red Cell Distribution Width 15.6H, Platelet Count 157, Mean Platelet Volume 7.0, Neutrophils (%) (Auto) 58.1, Lymphocytes (%) (Auto) 28.7, Monocytes (%) (Auto) 7.7, Eosinophils (%) (Auto) 3.9H, Basophils (%) (Auto) 1.6, Sodium Level 140, Potassium Level 4.1, Chloride Level 104, Carbon Dioxide Level 26, Anion Gap 10, Blood Urea Nitrogen 62H, Creatinine 7.9H, Estimat Glomerular Filtration Rate 6.7, Glucose Level 83, Calcium Level 9.1 Current Medications Medications (Trade) Dose Ordered Sig/Everardo Route PRN Reason Start Time Stop Time Status Last Admin Dose Admin Acetaminophen (Tylenol) 650 mg Q4H PRN ORAL Fever 01/20/18 18:53 02/16/18 18:52 01/23/18 18:28 Amlodipine Besylate (Norvasc) 10 mg DAILY ORAL 01/21/18 09:00 02/20/18 08:59 Artificial Tears (Akwa-Tears) 2 drop QID BOTH EYES 01/23/18 18:00 02/22/18 17:59 01/24/18 08:45 Atenolol (Tenormin) 25 mg DAILY ORAL 01/21/18 09:00 02/20/18 08:59 Docusate Sodium (Colace) 100 mg THREE TIMES A DAY ORAL 01/21/18 09:00 02/20/18 08:59 01/24/18 08:41 Dorzolamide/ Timolol (Cosopt) 1 drop TWICE A DAY BOTH EYES 01/23/18 18:00 02/22/18 17:59 01/24/18 08:45 Epoetin Evaristo (Procrit (for ESRD on dialysis)) 10,000 units SUN-SUN-SUN SUBQ 01/21/18 21:00 02/17/18 20:59 01/23/18 20:00 Fish Oil (Fish Oil) 1,000 mg BID ORAL 01/21/18 09:00 02/20/18 08:59 01/24/18 08:39 Folic Acid (Folate) 2 mg DAILY ORAL 01/21/18 09:00 02/20/18 08:59 01/24/18 08:41 Hydralazine HCl (Apresoline) 25 mg Q4H PRN ORAL bp over 160 syst 01/20/18 18:54 02/16/18 18:53 Ondansetron HCl (Zofran) 4 mg Q6H PRN IVP Nausea & Vomiting 01/20/18 18:54 02/16/18 18:53 Pantoprazole (Protonix) 40 mg DAILY ORAL 01/21/18 09:00 02/20/18 08:59 01/22/18 08:38 Polyethylene Glycol (Miralax) 17 gm DAILYPRN PRN ORAL Constipation 01/20/18 18:54 02/19/18 18:53 Sevelamer Carbonate (Renvela) 2,400 mg THREE TIMES A DAY ORAL 01/21/18 09:00 02/20/18 08:59 01/24/18 08:40 Sodium Chloride 1,000 ml @ 0 mls/hr Q0M IV 01/20/18 18:53 02/16/18 18:52 Temazepam (Restoril) 15 mg HSPRN PRN ORAL Insomnia 01/20/18 21:00 01/27/18 20:59 Porter Mckeon MD Jan 24, 2018 11:10
[2018-01-24 12:00] VITALS: BP 155/91
--- NOTE | 2018-01-24 12:53 | Nephrology Progress Note ---
Assessment/Plan Problem List: (1) ESRD (end stage renal disease) (2) Hypertension (3) Clotted dialysis access (4) Anemia in CKD (chronic kidney disease) Assessment ESRD DM HTN now controlled Morbid obesity clotted left chest cath Plan Plan: refusing blood work today transfused up dose Renvela PO folic acid Change cath by radiologist, done - dialysed 01/18 BP and BS check discussed with RN next HD 01/25 DC planning in process Subjective ROS Limited/Unobtainable: No Objective Objective Last 24 Hour Vital Signs Date Time Temp Pulse Resp B/P (MAP) Pulse Ox O2 Delivery O2 Flow Rate FiO2 01/24/18 09:13 Room Air 01/24/18 08:49 70 149/90 01/24/18 08:48 70 149/90 01/24/18 08:06 71 18 Room Air 21 01/24/18 08:00 97.7 70 20 143/90 (107) 100 97.7 01/23/18 21:00 Room Air 01/23/18 20:00 98.3 99 18 129/73 (91) 97 98.3 01/23/18 19:06 78 18 Room Air 21 01/23/18 18:30 98.6 84 20 146/86 (106) 100 98.6 01/23/18 17:52 Room Air 21 01/23/18 16:00 97.1 83 19 155/98 (117) 97 97.1 01/23/18 13:25 Room Air 21 Intake and Output 01/23/18 01/24/18 19:00 07:00 Intake Total 700 ml 240 ml Output Total 0 ml Balance 700 ml 240 ml Intake Oral 700 ml 240 ml Output Stool Total 0 ml # Voids 4 1 Laboratory Tests 01/24/18 05:34: White Blood Count 7.1, Red Blood Count 2.91L, Hemoglobin 8.4L, Hematocrit 26.4L , Mean Corpuscular Volume 91, Mean Corpuscular Hemoglobin 28.8, Mean Corpuscular Hemoglobin Concent 31.8L, Red Cell Distribution Width 15.6H, Platelet Count 157, Mean Platelet Volume 7.0, Neutrophils (%) (Auto) 58.1, Lymphocytes (%) (Auto) 28.7, Monocytes (%) (Auto) 7.7, Eosinophils (%) (Auto) 3.9H, Basophils (%) (Auto) 1.6, Sodium Level 140, Potassium Level 4.1, Chloride Level 104, Carbon Dioxide Level 26, Anion Gap 10, Blood Urea Nitrogen 62H, Creatinine 7.9H, Estimat Glomerular Filtration Rate 6.7, Glucose Level 83, Calcium Level 9.1 Height (Feet): 5 Height (Inches): 2.00 Weight (Pounds): 310 General Appearance: no apparent distress Cardiovascular: normal rate Respiratory/Chest: decreased breath sounds Abdomen: soft Objective no change Thompson Gresham MD Jan 24, 2018 12:53
--- NOTE | 2018-01-24 15:20 | Cardiac Electrophysiology PN ---
Assessment/Plan Assessment/Plan 1. Accelerated hypertension. On Norvasc 10 mg daily, Atenolol 25 mg daily and HD. 2. First-degree AV block. No Syncope 3. Clotted dialysis access. Has dialysis now via the new dialysis access line. KARIN HELMS RN at bedside Subjective Subjective No CP or SOB. Awaiting discharge. RN at bedside Objective Last 24 Hour Vital Signs Date Time Temp Pulse Resp B/P (MAP) Pulse Ox O2 Delivery O2 Flow Rate FiO2 01/24/18 12:00 98.4 71 19 155/91 (112) 99 98.4 01/24/18 09:13 Room Air 01/24/18 08:49 70 149/90 01/24/18 08:48 70 149/90 01/24/18 08:06 71 18 Room Air 21 01/24/18 08:00 97.7 70 20 143/90 (107) 100 97.7 01/23/18 21:00 Room Air 01/23/18 20:00 98.3 99 18 129/73 (91) 97 98.3 01/23/18 19:06 78 18 Room Air 21 01/23/18 18:30 98.6 84 20 146/86 (106) 100 98.6 01/23/18 17:52 Room Air 21 01/23/18 16:00 97.1 83 19 155/98 (117) 97 97.1 Intake and Output 01/23/18 01/24/18 19:00 07:00 Intake Total 700 ml 240 ml Output Total 0 ml Balance 700 ml 240 ml Intake Oral 700 ml 240 ml Output Stool Total 0 ml # Voids 4 1 Laboratory Tests Test 01/24/18 05:34 White Blood Count 7.1 K/UL (4.8-10.8) Red Blood Count 2.91 M/UL (4.20-5.40) L Hemoglobin 8.4 G/DL (12.0-16.0) L Hematocrit 26.4 % (37.0-47.0) L Mean Corpuscular Volume 91 FL (80-99) Mean Corpuscular Hemoglobin 28.8 PG (27.0-31.0) Mean Corpuscular Hemoglobin Concent 31.8 G/DL (32.0-36.0) L Red Cell Distribution Width 15.6 % (11.6-14.8) H Platelet Count 157 K/UL (150-450) Mean Platelet Volume 7.0 FL (6.5-10.1) Neutrophils (%) (Auto) 58.1 % (45.0-75.0) Lymphocytes (%) (Auto) 28.7 % (20.0-45.0) Monocytes (%) (Auto) 7.7 % (1.0-10.0) Eosinophils (%) (Auto) 3.9 % (0.0-3.0) H Basophils (%) (Auto) 1.6 % (0.0-2.0) Sodium Level 140 MMOL/L (136-145) Potassium Level 4.1 MMOL/L (3.5-5.1) Chloride Level 104 MMOL/L (98-107) Carbon Dioxide Level 26 MMOL/L (21-32) Anion Gap 10 mmol/L (5-15) Blood Urea Nitrogen 62 mg/dL (7-18) H Creatinine 7.9 MG/DL (0.55-1.30) H Estimat Glomerular Filtration Rate 6.7 mL/min (>60) Glucose Level 83 MG/DL (74-106) Calcium Level 9.1 MG/DL (8.5-10.1) Phosphorus Level 5.3 MG/DL (2.5-4.9) H Objective HEAD AND NECK: No JVD. LUNGS: Clear. CHEST: New dialysis access in the left subclavian. CARDIOVASCULAR: Regular. S1 and S2 with no gallop or murmur. ABDOMEN: Morbidly obese. EXTREMITIES: 1+ pitting edema. Frank Saab MD Jan 24, 2018 15:20
--- NOTE | 2018-01-24 15:33 | General Progress Note ---
Assessment/Plan Problem List: (1) Weak ICD Codes: R53.1 - Weakness SNOMED: 57450609 (2) Anemia ICD Codes: D64.9 - Anemia, unspecified SNOMED: 990278364 (3) ESRD (end stage renal disease) ICD Codes: N18.6 - End stage renal disease SNOMED: 66819332 (4) Hypertension ICD Codes: I10 - Essential (primary) hypertension SNOMED: 78568558 (5) Missed dialysis SNOMED: 544839051 (6) Clotted dialysis access ICD Codes: T82.49XA - Other complication of vascular dialysis catheter, initial encounter SNOMED: 55998376 Assessment/Plan ot pt diet dialysis transfuse dc w hh Subjective Constitutional: Reports: weakness Allergies: Coded Allergies: HEPARIN (Verified Allergy, Unknown, 01/17/18) negative reaction with eyes All Systems: reviewed and negative except above Subjective calm sleepy Objective Last 24 Hour Vital Signs Date Time Temp Pulse Resp B/P (MAP) Pulse Ox O2 Delivery O2 Flow Rate FiO2 01/24/18 12:00 98.4 71 19 155/91 (112) 99 98.4 01/24/18 09:13 Room Air 01/24/18 08:49 70 149/90 01/24/18 08:48 70 149/90 01/24/18 08:06 71 18 Room Air 21 01/24/18 08:00 97.7 70 20 143/90 (107) 100 97.7 01/23/18 21:00 Room Air 01/23/18 20:00 98.3 99 18 129/73 (91) 97 98.3 01/23/18 19:06 78 18 Room Air 21 01/23/18 18:30 98.6 84 20 146/86 (106) 100 98.6 01/23/18 17:52 Room Air 21 01/23/18 16:00 97.1 83 19 155/98 (117) 97 97.1 Intake and Output 01/23/18 01/24/18 19:00 07:00 Intake Total 700 ml 240 ml Output Total 0 ml Balance 700 ml 240 ml Intake Oral 700 ml 240 ml Output Stool Total 0 ml # Voids 4 1 Laboratory Tests 01/24/18 05:34: White Blood Count 7.1, Red Blood Count 2.91L, Hemoglobin 8.4L, Hematocrit 26.4L , Mean Corpuscular Volume 91, Mean Corpuscular Hemoglobin 28.8, Mean Corpuscular Hemoglobin Concent 31.8L, Red Cell Distribution Width 15.6H, Platelet Count 157, Mean Platelet Volume 7.0, Neutrophils (%) (Auto) 58.1, Lymphocytes (%) (Auto) 28.7, Monocytes (%) (Auto) 7.7, Eosinophils (%) (Auto) 3.9H, Basophils (%) (Auto) 1.6, Sodium Level 140, Potassium Level 4.1, Chloride Level 104, Carbon Dioxide Level 26, Anion Gap 10, Blood Urea Nitrogen 62H, Creatinine 7.9H, Estimat Glomerular Filtration Rate 6.7, Glucose Level 83, Calcium Level 9.1, Phosphorus Level 5.3H Height (Feet): 5 Height (Inches): 2.00 Weight (Pounds): 310 General Appearance: alert EENT: normal ENT inspection Neck: normal alignment Cardiovascular: normal peripheral pulses, normal rate, regular rhythm Respiratory/Chest: chest wall non-tender, lungs clear, normal breath sounds Abdomen: normal bowel sounds, non tender, soft Extremities: normal inspection Edema: no edema noted Arm (L), no edema noted Arm (R), no edema noted Leg (L), no edema noted Leg (R), no edema noted Pedal (L), no edema noted Pedal (R), no edema noted Generalized Neurologic: motor weakness Skin: normal pigmentation, warm/dry David Faulkner DO Jan 24, 2018 15:33
[2018-01-24 16:00] VITALS: BP 152/95
[2018-01-24] MEDS ORDERED: ACETAMINOPHEN325 M1 ORAL (16:35)
[2018-01-24] MEDS ORDERED: AKWA TEARS15 ML BOTH EYES (16:35)
[2018-01-24] MEDS ORDERED: COLACE100 MG ORAL (16:37)
[2018-01-24] MEDS ORDERED: COSOPT EYE DROP10 M1 BOTH EYES (16:37)
[2018-01-24] MEDS ORDERED: COSOPT PF EYE1 EAC1 (16:37)
[2018-01-24] MEDS ORDERED: RENVELA800 MG ORAL (16:38)
[2018-01-24] MEDS ORDERED: FISH OIL 1,0001 EAC1 ORAL (16:38)
[2018-01-24] MEDS ORDERED: PROTONIX40 MG ORAL (16:39)
[2018-01-24] MEDS ORDERED: NORVASC10 MG ORAL (16:39)
[2018-01-24] MEDS ORDERED: FOLIC ACID1 MG ORAL (16:39)
[2018-01-24] MEDS ORDERED: ATENOLOL25 MG ORAL (16:39)
[2018-01-24] MEDS ORDERED: PROCRIT10000 UNIT SUBQ (16:40)
[2018-01-24] MEDS ORDERED: HYDRALAZINE HCL25 M1 ORAL (16:41)
[2018-01-24] MEDS ORDERED: MIRALAX17 G2 ORAL (16:42)
[2018-01-24] MEDS ORDERED: RESTORIL15 MG ORAL (16:43)
[2018-01-24] MEDS ORDERED: Tubing IV Blood Pump IV ONE (17:16)
[2018-01-24] MEDS ORDERED: NS 275ml ONE (17:16)
--- NOTE | 2018-01-25 15:22 | Discharge Summary ---
Discharge Summary Discharge Summary _ DATE OF ADMISSION: 01/17/2018 DATE OF DISCHARGE: 01/24/2018 CONSULTANTS: Dr. Porter Gresham BRIEF HOSPITAL COURSE: Patient is a 47-year-old female, who lives at home, presented to [place] [facility] due to increased weakness. She had gradual onset of symptoms. She has a history of end-stage renal disease on hemodialysis, hypertension and diabetes. She recently had a graft infection and had surgery to replace dialysis catheter at [facility]. The patient was unable to obtain dialysis, she went to dialysis clinic and was unable to be completely dialyze due to malfunction of the access. She denied fever. No vomiting. No shortness of breath. On evaluation at ED, blood pressure was elevated to 173/104. Laboratory studies showed markedly elevated BUN/creatinine consistent with missed dialysis. Hemoglobin was 8, hematocrit 25. Creatinine was 15, BUN 96. Potassium was 3.9. Patient was admitted due to missed dialysis secondary to clotted dialysis access. Dr. Thompson Gresham was consulted for inpatient dialysis. Blood pressure was elevated she was given Norvasc and atenolol. Hydralazine 25 mg BID prn was added to her regimen. On 01/17/2018, she underwent permacath exchange by IR. She was ordered hemodialyses, however, permacath was again nonfunctional. On , she again underwent permacath exchange by IR. She was eventually dialyzed after. Phosphates were elevated. Renvela dose was increased. She was deficient in folate and was given folic acid supplements. On 01/20/2018, there was a further drop in hemoglobin. Multiple attempts were made to insert IV, however, was unsuccessful. Dr. Favio Siu was consulted. A left EJ line was inserted. She received 2 units packed RBC blood transfusion. She complained of pain and burning sensation on the eye. She had retinal issues and cataracts and had decreased vision for the past 3 years. Symptoms worsened on April. She can't see out of the right eye and claims to have drainage coming out from the right eye. Ophthalmology consult was obtained. 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 She was started on ocular antihypertensives to lower intraocular pressure and was given artificial tears for comfort from eye dryness. Stressed importance of outpatient follow-up management of eye disease and risk of further loss of vision without any treatment. There was no sign of bacterial infection on the eye. Social service was called in to aid with discharge planning. Patient refused assistance with placement upon discharge. Hemodialyses was set up with [facility]. Patient will be moving to [facility]. Coordination for transfer from [facility] to [facility] was made. Patient was eventually discharged home. 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 DISCHARGE MEDICATIONS: Refer to Discharge Medication List. DISCHARGE INSTRUCTIONS: Follow up within a week. I have been assigned to dictate discharge summary on this account, and I was not involved in the patient's management. Fani Dickey NP Jan 25, 2018 15:22
== END 2018-01-24 17:17 | disposition home health service (06) | DRG 314 ==
LOC: EMR 01:42 → EDBEDREQ 02:47 → 2E 02:52 → EDBEDREQ 03:42 → 3E 01-20 18:40
PROC: 5A1D70Z Performance of Urinary Filtration, Intermittent, Less than 6 Hours Per Day (ICD-10-PCS; principal; 2018-01-17)
PROC: 05HN33Z Insertion of Infusion Device into Left Internal Jugular Vein, Percutaneous Approach (ICD-10-PCS; 2018-01-18)
PROC: 0JH63XZ Insertion of Tunneled Vascular Access Device into Chest Subcutaneous Tissue and Fascia, Percutaneous Approach (ICD-10-PCS; 2018-01-18)
PROC: B514ZZA Fluoroscopy of Left Jugular Veins, Guidance (ICD-10-PCS; 2018-01-18)
PROC: B544ZZA Ultrasonography of Left Jugular Veins, Guidance (ICD-10-PCS; 2018-01-20)
PROC: 30233N1 Transfusion of Nonautologous Red Blood Cells into Peripheral Vein, Percutaneous Approach (ICD-10-PCS; 2018-01-20)
PROC: 05HQ33Z Insertion of Infusion Device into Left External Jugular Vein, Percutaneous Approach (ICD-10-PCS; 2018-01-20)
PROC: 05PYX3Z Removal of Infusion Device from Upper Vein, External Approach (ICD-10-PCS; 2018-01-21)
PROC: 0JH63XZ Insertion of Tunneled Vascular Access Device into Chest Subcutaneous Tissue and Fascia, Percutaneous Approach (ICD-10-PCS; 2018-01-21)
PROC: 05HM33Z Insertion of Infusion Device into Right Internal Jugular Vein, Percutaneous Approach (ICD-10-PCS; 2018-01-21)
PROC: B513ZZA Fluoroscopy of Right Jugular Veins, Guidance (ICD-10-PCS; 2018-01-21)
DX: T82.49XA Other complication of vascular dialysis catheter, initial encounter (principal); N18.6 End stage renal disease; I12.0 Hypertensive chronic kidney disease with stage 5 chronic kidney disease or end stage renal disease; Z68.43 Body mass index [BMI] 50.0-59.9, adult; J81.1 Chronic pulmonary edema; E11.22 Type 2 diabetes mellitus with diabetic chronic kidney disease; Z99.2 Dependence on renal dialysis; D64.9 Anemia, unspecified; E66.01 Morbid (severe) obesity due to excess calories; I44.0 Atrioventricular block, first degree; E11.319 Type 2 diabetes mellitus with unspecified diabetic retinopathy without macular edema; H21.1X1 Other vascular disorders of iris and ciliary body, right eye; H40.89 Other specified glaucoma
CPT/HCPCS: 36415; 71045; 76000; 80048; 80053; 80061; 80076; 81025; 82270; 82378; 82607; 82728; 82746; 82977; 83036; 83540; 83550; 83605; 83615; 83735; 83880; 84100; 84443; 84484; 84550; 85007; 85025; 85044; 85060; 85610; 85651; 85730; 86140; 86706; 86707; 86803; 86850; 86900; 86901; 86920; 87040; 87081; 93005; 93306; 94664; 99285; J2405